=== PATIENT | female | born 1945 | race Caucasian/White ===

== ENCOUNTER 2024-04-16 17:29 | Inpatient (IN) ==
--- NOTE | 2024-04-16 18:06 | Emergency Department Note ---
Impression & Plan Acute calculous cholecystitis, Liver lesion ED Provider Note NAME: SARAH KOCH AGE: 79 SEX: F : 1945 ARRIVES VIA: Walk-In INFORMANT: Patient, ED PROVIDER(S): Jose Juan Cevallos DO CHIEF COMPLAINT: Abdominal pain HPI: The patient is an 79-year-old female who presented to the emergency department for an evaluation of abdominal pain. The patient had symptoms for approximately 4 weeks. She has noticed low-grade fever as well as fatigue. She was seen by her family doctor and had multiple tests including ultrasound of the abdomen laboratory studies as well as an MRI of the abdomen. She had the MRI of the abdomen today. She was called by her family doctor today and told to go directly to the emergency department for further evaluation. She has had no dark or tarry stools. She denies having any vomiting. She denies having any chest pain or difficulty breathing. The patient still has her gallbladder. ROS: See above HPI for pertinent positives & negatives. A total of 10 systems reviewed and were otherwise negative. PAST MEDICAL HISTORY: See Below PAST SURGICAL HISTORY: See Below FAMILY HISTORY: See Below SOCIAL HISTORY: See Below HOME MEDICATIONS: See Below ALLERGIES: See Below VITALS: See Below PHYSICAL EXAMINATION: GENERAL: Patient is awake alert in no acute distress patient is resting comfortably and showing no signs of anxiety EYES: The conjunctivae are clear. The pupils are round and reactive. EARS, NOSE, MOUTH AND THROAT: The nose is without any evidence of any deformity. Mucous membranes are moist. Tongue is midline. NECK: The neck is nontender and supple. RESPIRATORY: Normal respiratory effort is noted there is no evidence of wheezing rhonchi or rales CARDIOVASCULAR: Regular rate and rhythm noted there no murmurs rubs or gallops normal S1 normal S2. GASTROINTESTINAL: The abdomen is nondistended. There is right upper quadrant tenderness to palpation which was moderate. MUSCULOSKELETAL/EXTREMITIES: There is no evidence of gross deformity full range of motion is noted in the hips and shoulders. SKIN: There is no obvious evidence of any rash. There are no petechiae, pallor or cyanosis noted. NEUROLOGIC: Patient is awake alert and oriented x 3. MEDICAL DECISION MAKING: The patient is an 79-year-old female who presented to the emergency department for an evaluation of abdominal pain and generalized weakness. The patient's had symptoms over several weeks. She did have an outpatient workup. To be consistent with cholecystitis but is complicated by lesions on her liver that could be consistent with metastatic process. I discussed the patient's laboratory and radiographic studies with her. I was able to get her radiographic studies and notes from the [facility] system. I discussed her condition with the relish blender the medicine team as well as surgery. Likely the patient will require a multidisciplinary approach to treat this cholecystitis as well as workup for these lesions noted on the liver and determine if the primary is intra-abdominal or in another part of her body. The patient was treated with IV antibiotics. Triage Nursing notes reviewed. Patient's medical records from the [facility] system including an MRI of the abdomen ultrasound the abdomen and laboratory studies were reviewed. Vital Signs: reviewed and remarkable for no significant abnormalities Differential diagnosis: Etiologies such as appendicitis, diverticulitis, obstruction, inflammatory bowel disease, renal colic, PUD, biliary pathology, pancreatitis, mesenteric ischemia, aortic pathology, infections, genitourinary, UTI, perforated viscus, as well as others were entertained. ER treatment provided: See below Diagnostics interpreted by me: ECG: EKG was obtained in the emergency department. My interpretation is sinus rhythm at 95 bpm. There is no ectopy. There is no acute ST segment abnormalities noted. This was compared to a tracing from January 26, 2024. No changes were noted. Cardiac Monitoring: An order was placed for continuous cardiac monitoring. The monitor shows a rate of 84 bpm with sinus rhythm. Laboratory studies: As stated above and show below. Imaging studies: See below. Consultation(s): I discussed this case with Dr. Smallwood who is on for gastroenterology. I discussed this case with Dr. Moncada who is on-call for the [facility] hospitalist group. Past Med/Surg History Problem List Liver lesion (Acute) Acute calculous cholecystitis (Acute) History of surgery on left wrist Medical History (Updated 04/16/24 @ 20:22 by Jose Juan Cevallos DO) Celiac disease Follows gluten free Trigeminal neuralgia History of COVID-19 01/11/24 (home test)- took paxlovid, symptoms all resolved Fracture of distal end of left radius Osteoporosis Osteoarthritis HTN (hypertension) Surgical History History of liver biopsy benign History of esophagogastroduodenoscopy (EGD) History of benign breast biopsy History of colonoscopy History of wisdom tooth extraction History of parathyroidectomy 2014 History of surgery 2006 (for trigeminal neuralgia) Family History Other No family history of adverse response to anesthesia Social History Smoking Status: Never smoker Tobacco Type: Cigarettes Second Hand Exposure: No; Do You Dip or Chew Tobacco: No; Hx Alcohol Use: Yes Alcohol type: wine Hx Substance Use: No Preferred Language: Amharic Communication Ability: Effective 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 Beliefs That Will Affect Care: None marital status: / Current Living Situation: Spouse current occupational status: retired Feels Safe at Home: Yes Assistive Devices: Glasses Allergies Allergies Allergy/AdvReac Type Severity Reaction Status Date / Time gluten Allergy Severe celiac's Verified 04/16/24 18:00 disease wheat Allergy Severe celiac's Verified 04/16/24 18:00 disease carbamazepine [From Tegretol] Allergy Intermediate rash all Verified 04/16/24 18:00 over body oxcarbazepine Allergy Intermediate rash all Verified 04/16/24 18:00 [From Trileptal] over body Home Meds Home Medications Medication Instructions Recorded Confirmed cholecalciferol (vitamin D3) 25 25 mcg PO QAM 01/28/24 04/16/24 mcg (1,000 unit) capsule (Vitamin D3) cyanocobalamin (vitamin B-12) 1,000 mcg PO QAM 01/28/24 04/16/24 1,000 mcg tablet (Vitamin B-12) vitamin B complex 1 tab PO QAM 01/28/24 04/16/24 Previous Rx's Medication Instructions Recorded ondansetron 4 mg disintegrating 4 mg PO Q6H PRN nausea and 01/31/24 tablet vomiting #10 tabs Results & Data (ED) Vital Signs Vital Signs - 24 hr 04/16/24 17:33 04/16/24 17:53 04/16/24 18:04 Temperature 36.7 C Temperature Source Oral Pulse Rate 99 H Pulse Rate [Finger] 102 H Pulse Rhythm Regular Pulse Strength Normal Pulse Strength [Finger] Normal Respiratory Rate 20 18 18 Respiratory Effort / Characteristics Non-Labored Spontaneous Non-Labored Spontaneous Respiratory Depth Normal Normal Respiratory Pattern Regular Regular Blood Pressure 139/83 Blood Pressure [Left Arm] 115/72 Blood Pressure Mean 101 Blood Pressure Mean [Left Arm] 86 Blood Pressure Position [Left Arm] Sitting Pulse Oximetry 94 96 96 Oxygen Delivery Method Room Air Room Air Room Air Sepsis Recent Fever Within 48 Hours No Sepsis New/Unexplained Change in Mental Status No Sepsis Action Taken by Nursing No Action Required 04/16/24 18:28 Temperature Temperature Source Pulse Rate 91 H Pulse Rate [Finger] Pulse Rhythm Pulse Strength Pulse Strength [Finger] Respiratory Rate Respiratory Effort / Characteristics Respiratory Depth Respiratory Pattern Blood Pressure Blood Pressure [Left Arm] Blood Pressure Mean Blood Pressure Mean [Left Arm] Blood Pressure Position [Left Arm] Pulse Oximetry Oxygen Delivery Method Sepsis Recent Fever Within 48 Hours Sepsis New/Unexplained Change in Mental Status Sepsis Action Taken by Care Home Medications Current Medication List: was personally reviewed by me Laboratory Data Attestation: I reviewed the patient's lab results. 04/16/24 17:48 04/16/24 17:48 Lab Results 04/16/24 Range/Units 17:48 WBC 10.11 (4.8-10.8) K/ul RBC 3.57 L (4.20-5.40) M/uL Hgb 9.7 L (12.0-16.0) g/dl Hct 30.6 L (37.0-47.0) % MCV 85.7 (80.0-100.0) fL MCH 27.2 (25.0-34.0) pg MCHC 31.7 L (32.0-36.0) g/dL RDW Std Deviation 43.8 (36.4-46.3) fL RDW Coeff of Christianne 14.0 (11.5-14.5) % Plt Count 582 H (130-400) K/uL MPV 8.5 L (9.4-12.4) fL Immature Gran % (Auto) 0.5 % Neut % (Auto) 77.9 % Lymph % (Auto) 12.6 % Jasper % (Auto) 7.7 % Eos % (Auto) 0.8 % Baso % (Auto) 0.5 % Neut # (Auto) 7.88 H (1.40-6.50) K/uL Lymph # (Auto) 1.27 (1.20-3.40) K/uL Jasper # (Auto) 0.78 H (0.11-0.59) K/uL Eos # (Auto) 0.08 (0.00-0.50) K/uL Baso # (Auto) 0.05 (0.00-0.20) K/uL Immature Gran # (Auto) 0.05 (0.01-0.20) K/uL Sodium 134 L (136-145) mmol/L Potassium 3.8 (3.5-5.1) mmol/L Chloride 100 (98-107) mmol/L Carbon Dioxide 25 (21-32) mmol/L Anion Gap 9 (3-11) BUN 8 (6-23) mg/dl Creatinine 0.63 (0.6-1.2) mg/dl Est Cr Clr Drug Dosing 79.9 ml/min eGFR 89.07 BUN/Creatinine Ratio 12.7 (10-20) Glucose 153 H (70-99(Fasting)) mg/dl Calcium 9.2 (8.6-10.3) mg/dl Total Bilirubin 0.5 (0.2-1.0) mg/dl AST 54 H (13-39) U/L ALT 66 H (7-52) U/L Alkaline Phosphatase 139 H (34-104) U/L Troponin I High Sens 6.1 (0-14) pg/ml Total Protein 7.4 (6.0-8.3) gm/dl Albumin 3.4 (3.4-5.0) gm/dl Globulin 4.0 (2.5-4.0) gm/dl Albumin/Globulin Ratio 0.9 (0.9-2) Lipase 30 (11-82) U/L Administered Medications Discontinued Medications Cefoxitin Sodium (Mefoxin) 2,000 mg in 60 mls @ 100 mls/hr IV NOW STA Stop: 04/16/24 18:30 Last Infusion: 04/16/24 19:35 Dose: Infused Documented By: Admin: 04/16/24 18:59 Dose: 100 mls/hr Documented By: JODI Discharge Plan Visit Data Chief Complaint: Referred by Doctor Stated Complaint: GALLBLADDER WILL BURST ED Provider: Jose Juan Cevallos Discharge Problem: Acute calculous cholecystitis, Liver lesion Patient Disposition: Admitted As Inpatient Discharge Instructions Interventions: ED Discharge Assessment Last Done: 04/16/24 20:12
[2024-04-16 18:13] LABS: Basophils # (auto) 0.05 K/uL (0.00-0.20); Basophils % (auto) 0.5 %; Eosinophils # (auto) 0.08 K/uL (0.00-0.50); Eosinophils % (auto) 0.8 %; Hematocrit (blood only) 30.6 % (37.0-47.0); Hemoglobin 9.7 g/dl (12.0-16.0); Immature Granulocytes # (auto) 0.05 K/uL (0.01-0.20); Immature Granulocytes % (auto) 0.5 %; Lymphocytes # (auto) 1.27 K/uL (1.20-3.40); Lymphocytes % (auto) 12.6 %; Mean Corpuscular Hemoglobin 27.2 pg (25.0-34.0); Mean Corpuscular Hgb Conc 31.7 g/dL (32.0-36.0); Mean Corpuscular Volume 85.7 fL (80.0-100.0); Mean Platelet Volume 8.5 fL (9.4-12.4); Monocytes # (auto) 0.78 K/uL (0.11-0.59); Monocytes % (auto) 7.7 %; Neutrophils # (auto) 7.88 K/uL (1.40-6.50); Neutrophils % (auto) 77.9 %; Platelet Count 582 K/uL (130-400); RDW Standard Deviation 43.8 fL (36.4-46.3); Red Blood Count 3.57 M/uL (4.20-5.40); White Blood Count 10.11 K/ul (4.8-10.8)
--- NOTE | 2024-04-16 18:17 | History & Physical Report ---
Date of Service April 16, 2024 Assessment & Plan (1) Acute calculous cholecystitis: (2) Liver lesion: Plan: 79-year-old female with history of hypertension, dyslipidemia, hyperparathyroidism status post parathyroidectomy, celiac disease, presenting with abnormal MRI of the abdomen. Acute calculus cholecystitis Bilirubin normal Mild elevation of AST, ALT, alk phos Blood cultures ordered IV Zosyn N.p.o., IV fluids General Surgery consulted Multiple liver lesions, suspicious for metastasis GI consulted Anemia Anemia panel ordered History of hypertension Blood pressure at goal Recently has been taken off metoprolol Other chronic medical conditions: Dyslipidemia Hyperparathyroidism, status post surgery Celiac disease DVT prophylaxis SCDs for now in light of possible surgery CODE STATUS DNR as per patient Disposition Anticipate discharge to home when medically stable History of Present Illness Chief Complaint: Sent in by primary care physician for abnormal MRI of the abdomen showing acute calculus cholecystitis and multiple liver lesions Primary Care Provider: Vicenta Westbrook MD 79-year-old female with history of hypertension, dyslipidemia, hyperparathyro idism status post parathyroidectomy, celiac disease, presenting with abnormal MRI of the abdomen. Patient report at least 1 month history of abdominal bloating, generalized weakness, and intermittent fever/chills. She was seen by her PCP 2 days ago, found to have elevated LFTs and anemia, and was sent for an MRI of the abdomen and pelvis. She was called in today as the MRI acute calculus cholecystitis, and multiple liver lesions. At the ER, patient received with stable vital signs, afebrile. LFTs showing mild elevation of AST/ALT/alk phos, but normal bilirubin. She was given IV cefoxitin. On exam, patient seen resting in bed, comfortable, in good spirits, very pleasant. Reports appetite is fair, has some weight loss, but no melena or hematochezia. Allergies Allergy/AdvReac Type Severity Reaction Status Date / Time gluten Allergy Severe celiac's Verified 04/16/24 18:00 disease wheat Allergy Severe celiac's Verified 04/16/24 18:00 disease carbamazepine [From Tegretol] Allergy Intermediate rash all Verified 04/16/24 18:00 over body oxcarbazepine Allergy Intermediate rash all Verified 04/16/24 18:00 [From Trileptal] over body Home Medications Medication Instructions Recorded Confirmed Type cholecalciferol (vitamin D3) 25 25 mcg PO QAM 01/28/24 04/16/24 History mcg (1,000 unit) capsule (Vitamin D3) cyanocobalamin (vitamin B-12) 1,000 mcg PO QAM 01/28/24 04/16/24 History 1,000 mcg tablet (Vitamin B-12) metoprolol succinate 25 mg 25 mg PO QPM 01/28/24 04/16/24 History tablet,extended release 24 hr vitamin B complex 1 tab PO QAM 01/28/24 04/16/24 History ondansetron 4 mg disintegrating 4 mg PO Q6H PRN nausea and 01/31/24 04/16/24 Rx tablet vomiting #10 tabs Past Med/Surg History Problem List Liver lesion Acute calculous cholecystitis History of surgery on left wrist Medical History (Updated 04/16/24 @ 19:37 by Sin Moncada MD) Celiac disease Follows gluten free Trigeminal neuralgia History of COVID-19 01/11/24 (home test)- took paxlovid, symptoms all resolved Fracture of distal end of left radius Osteoporosis Osteoarthritis HTN (hypertension) Surgical History History of liver biopsy benign History of esophagogastroduodenoscopy (EGD) History of benign breast biopsy History of colonoscopy History of wisdom tooth extraction History of parathyroidectomy 2013 History of surgery 2006 (for trigeminal neuralgia) Family History Other No family history of adverse response to anesthesia Social History Smoking Status: Never smoker Tobacco Type: Cigarettes Second Hand Exposure: No; Do You Dip or Chew Tobacco: No; Hx Alcohol Use: Yes Alcohol type: wine Hx Substance Use: No Preferred Language: Angolan Communication Ability: Effective 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 Beliefs That Will Affect Care: None marital status: / Current Living Situation: Spouse current occupational status: retired Feels Safe at Home: Yes Assistive Devices: Glasses Review of Systems Review of Systems: all noted and negative except for above Physical Exam Physical Exam: General- oriented x 3, not in distress, speaks in sentences with no effort or accessory muscle use Head- atraumatic Eyes- PERRL, EOMI, anicteric ENT- oropharynx clear Neck- supple, no JVD, no adenopathy, no thyromegaly; carotids +2/2, no bruits appreciated Lungs- clear to auscultation bilaterally, no rales/wheezes Heart- normal rate, regular rhythm; no murmur, no gallop, no rub appreciated Abdomen- normal bowel sounds, nondistended, soft, Positive Turner sign, no masses or hepatosplenomegaly Extremities- no pretibial edema, no calf tenderness; peripheral pulses intact Neuro- alert, oriented x 3; CN 2-12 grossly intact; motor 5/5 bilaterally;sensation 100% on all extremities; no other gross focal neurologic deficits Skin- warm & dry Results & Data Results & Data Vital Signs (Past 12 Hours) Vital Signs Temp Pulse Pulse Resp BP BP Pulse Ox 04/16/24 18:04 18 96 04/16/24 17:53 102 H 18 115/72 96 04/16/24 17:33 36.7 C 99 H 20 139/83 94 O2 Del Method 04/16/24 18:04 Room Air 04/16/24 17:53 Room Air 04/16/24 17:33 Room Air all noted and reviewed including below Diagnostic Findings EXAM: MRI abdomen without and with contrast. HISTORY: abn US with multiple lever lesions. COMPARISON: None. Correlated to ultrasound from 04/14/2024. TECHNIQUE: Multiplanar multisequence MRI of the abdomen without and with contrast was performed. The arterial post-contrast phase is degraded by respiratory motion limiting assessment. FINDINGS: LIVER: There are several hypovascular liver lesions in the right hepatic lobe. Most of the lesions are solid with a hypovascular rim of enhancement such as on image 27 of series 11 and measuring 12 mm on image 73 of series 3. Few cystic lesions are present in the right hepatic lobe such as measuring 1.6 cm inferior right hepatic lobe on image 86 of series 23. A 9 mm simple cyst is present in the left hepatic lobe. An 8 millimeter mildly complex cyst is present in the inferior right hepatic lobe on image 30 of series 7. Heterogenous high T2 signal is present throughout the liver with heterogenous enhancement. GALLBLADDER/BILE DUCTS: Distended gallbladder measuring at least 13 cm in craniocaudal dimension. Multiple gallstones are present with mild pericholecystic fluid. There is mass effect on the common hepatic duct by the distended gallbladder with mild intrahepatic biliary ductal dilatation. No def inite choledocholithiasis. There is focal thickening of the gallbladder wall at the level of the fundus measuring 8 mm with mild smooth enhancement. PANCREAS : Multiple subcentimeter adjacent cystic lesions are present abutting the head and uncinate process of the pancreas on image 29 of series 7 which are poorly assessed on the current examination. There is no abnormal dilatation of the main pancreatic duct. Pancreas divisum is suspected. GI TRACT: No small bowel obstruction. SPLEEN: Unremarkable. LYMPH NODES: Enlarged portacaval lymph node is present measuring 14 mm in short axis on image 53 of series 10 with mild effect on the common bile duct. ADRENAL GLANDS: Unremarkable right adrenal gland. Mild nodularity left adrenal gland which is too small to characterize. KIDNEYS: Unremarkable. VASCULATURE: No aortic aneurysm. MUSCULOSKELETAL: No osseous destruction. MISCELLANEOUS: No free fluid. IMPRESSION: 1. Distended gallbladder with gallstones and pericholecystic fluid representing acute calculus cholecystitis. An emergent surgical consultation is recommended. 2. Mass effect on the common bile duct but distended gallbladder with intrahepatic biliary ductal dilatation. Heterogenous signal and enhancement in the liver which could be related to cholangitis or changes reactive to gallbladder inflammation. 3. Mild thickening of the gallbladder wall at the level of the fundus could be reactive to inflammatory changes. Note that neoplasm is less likely but not excluded. 4. Multiple hypovascular liver lesions most likely representing metastasis. Abnormal portacaval lymph node most likely metastasis. Further evaluation is recommended with a PET scan. 5. Few cystic lesions right hepatic lobe, indeterminate and probably metastasis. 6. Multiple subcentimeter cystic lesions abutting the head and uncinate process of the pancreas poorly assessed on the current examination and could represent small side branch type intraductal mucinous papillary neoplasm. 7. Enlarged portacaval lymph node. 8. Additional findings and details as above. (In compliance with Act 112, the NAIL ARTIST (Breaster) was contacted to invoke system generated communication of the patient's results.)
[2024-04-16 18:21] LABS: Albumin Globulin Ratio 0.9 (0.9-2); Albumin Level 3.4 gm/dl (3.4-5.0); BUN Creatinine Ratio 12.7 (10-20); Bilirubin,Total 0.5 mg/dl (0.2-1.0); Calcium 9.2 mg/dl (8.6-10.3); Creatinine Clr Calc Pharmacy 79.9 ml/min; Potassium 3.8 mmol/L (3.5-5.1); Total Protein 7.4 gm/dl (6.0-8.3)
[2024-04-16 18:27] LABS: Troponin I High Sensitivity 6.1 pg/ml (0-14)
[2024-04-16] MEDS: cefOXitin 2,000 MG/60 ML BAG IV STA (18:59)
[2024-04-16 19:31] LABS: Appearance Urine Clear (Clear); Bacteria Urine Automated None Seen (None Seen); Bilirubin Urine Negative (Negative); Blood Urine Negative (Negative); Cast Urine Automated 0-2 /lpf (0-2); Color Urine Yellow; Epithelial Cell Urine Auto 0-2 /hpf (0-2); Glucose Urine UA Negative (Negative); Ketones Urine Negative (Negative); Leukocyte Esterase Urine Trace (Negative); Nitrite Urine Negative (Negative); Protein Urine Negative (Negative); RBC Urine Automated 0-2 /hpf (0-2); Specific Gravity Urine 1.005 (1.000-1.030); Urobilinogen Urine Negative (Negative); WBC Urine Automated 0-5 /hpf (0-5)
--- NOTE | 2024-04-16 20:04 | Surgery Consultation ---
<Statement entered by Suri Hoover DO - 04/17/24 09:45> This case was discussed with the surgical PA and ED physician Date of Consultation April 16, 2024 Assessment & Plan (1) Acute calculous cholecystitis: Patient was sent to the ED this evening by her PCP due to outpatient imaging and labs revealing acute calculus cholecystitis, multiple liver lesions concerning for metastasis, and elevated LFTs. She was seen and evaluated this evening, she is resting comfortably in bed, stable vital signs, and is in no acute distress. The patient continues with upper quadrant abdominal pain that has been present for the last few weeks. She otherwise denies any associated N/V. On exam her abdomen is soft and nondistended but does have TTP in the RUQ with +Turner sign. From a surgical standpoint recommend the following: -Keep patient npo for now, initiate IV fluids, and IV antibiotic coverage with Zosyn -Given multiple liver lesions, recommend GI consult to further evaluate. Patient may also need IR biopsy done as well. -Will f/u am LFTs and WBC -Continue medical management per primary team, surgery will continue to follow (2) Liver lesion: History of Present Illness Reason for Consultation: Acute calculus cholecystitis History of Present Illness Patient is an 79-year-old female who presented to the emergency department by her PCP for concerns of acute calculus cholecystitis and multiple liver lesions found on outpatient MRI imaging. Patient states that over the last 3 to 4 weeks she has had abdominal bloating, generalized weakness and intermittent fevers and chills at times. Patient states that she has also had some right upper quadrant abdominal pain as well. Patient was seen by her PCP a few days ago and at that time blood work was obtained which revealed elevated LFTs and anemia. Patient was also sent for MRI imaging as an outpatient and results demonstrated acute calculus cholecystitis and multiple liver lesions, at that time she was prompted to come to the ED for further evaluation and admission. Patient was seen and examined this evening in the emergency department. Vitals stable and NAD. Patient states that she continues to have right upper quadrant pain however is tolerable at this time. She tells me that she does have a history of celiac disease for the past 40 years and does eat a relatively healthy diet. However she has noticed her abdomen feeling more bloated over the last month after eating and states she is also having increase gas/belching. Although having these symptoms the patient states she is still able to eat without any issue with any foods making it better or worse. She states the pain in her right upper quadrant is persistent and at times does radiate into her epigastric region. She denies any associated N/V or changes in her bowel habits. She denies any previous abdominal surgeries. Allergies Allergy/AdvReac Type Severity Reaction Status Date / Time gluten Allergy Severe celiac's Verified 04/16/24 18:00 disease wheat Allergy Severe celiac's Verified 04/16/24 18:00 disease carbamazepine [From Tegretol] Allergy Intermediate rash all Verified 04/16/24 18:00 over body oxcarbazepine Allergy Intermediate rash all Verified 04/16/24 18:00 [From Trileptal] over body Home Medications Medication Instructions Recorded Confirmed Type cholecalciferol (vitamin D3) 25 25 mcg PO QAM 01/28/24 04/16/24 History mcg (1,000 unit) capsule (Vitamin D3) cyanocobalamin (vitamin B-12) 1,000 mcg PO QAM 01/28/24 04/16/24 History 1,000 mcg tablet (Vitamin B-12) vitamin B complex 1 tab PO QAM 01/28/24 04/16/24 History ondansetron 4 mg disintegrating 4 mg PO Q6H PRN nausea and 01/31/24 04/16/24 Rx tablet vomiting #10 tabs Patient History Medical History (Updated 04/16/24 @ 20:22 by Jose Juan Cevallos DO) Celiac disease Follows gluten free Trigeminal neuralgia History of COVID-19 01/11/24 (home test)- took paxlovid, symptoms all resolved Fracture of distal end of left radius Osteoporosis Osteoarthritis HTN (hypertension) Surgical History History of liver biopsy benign History of esophagogastroduodenoscopy (EGD) History of benign breast biopsy History of colonoscopy History of wisdom tooth extraction History of parathyroidectomy 2013 History of surgery 2006 (for trigeminal neuralgia) Family History Other No family history of adverse response to anesthesia Social History Smoking Status: Never smoker Tobacco Type: Cigarettes Second Hand Exposure: No; Do You Dip or Chew Tobacco: No; Hx Alcohol Use: Yes Alcohol type: wine Hx Substance Use: No Preferred Language: Wolof Communication Ability: Effective Assistant Track Coach Required: No Beliefs That Will Affect Care: None marital status: / Current Living Situation: Spouse current occupational status: retired Feels Safe at Home: Yes Assistive Devices: Glasses Review of Systems Review of Systems: All systems reviewed & are unremarkable except as noted in HPI & below Physical Exam Constitutional: WD/WN, vitals as above Respiratory: normal respiratory effort, lungs clear to auscultation Cardiovascular: RRR, no murmur, no edema Gastrointestinal (Abdomen): Inspection/Auscultation: abdomen normal to inspection and normal bowel sounds; abdomen not distended Percus karen/Palpation: + abdomen tender (TTP in the RUQ with +Turner's sign) and abdomen soft; no guarding, abdomen not rigid and abdomen not firm Skin: no rashes, warm and dry Psychiatric: A+Ox3, euthymic affect Results & Data Vital Signs (Past 12 Hours) Vital Signs Temp Pulse Pulse Resp BP BP Pulse Ox 04/16/24 19:42 94 H 23 122/90 96 04/16/24 18:28 91 H 04/16/24 18:04 18 96 04/16/24 17:53 102 H 18 115/72 96 04/16/24 17:33 36.7 C 99 H 20 139/83 94 O2 Del Method 04/16/24 19:42 Room Air 04/16/24 18:28 04/16/24 18:04 Room Air 04/16/24 17:53 Room Air 04/16/24 17:33 Room Air Diagnostic Findings EXAM: MRI abdomen without and with contrast. HISTORY: abn US with multiple lever lesions. COMPARISON: None. Correlated to ultrasound from 04/14/2024. TECHNIQUE: Multiplanar multisequence MRI of the abdomen without and with contrast was performed. The arterial post-contrast phase is degraded by respiratory motion limiting assessment. FINDINGS: LIVER: There are several hypovascular liver lesions in the right hepatic lobe. Most of the lesions are solid with a hypovascular rim of enhancement such as on image 27 of series 11 and measuring 12 mm on image 73 of series 3. Few cystic lesions are present in the right hepatic lobe such as measuring 1.6 cm inferior right hepatic lobe on image 86 of series 23. A 9 mm simple cyst is present in the left hepatic lobe. An 8 millimeter mildly complex cyst is present in the inferior right hepatic lobe on image 30 of series 7. Heterogenous high T2 sign al is present throughout the liver with heterogenous enhancement. GALLBLADDER/BILE DUCTS: Distended gallbladder measuring at least 13 cm in craniocaudal dimension. Multiple gallstones are present with mild pericholecystic fluid. There is mass effect on the common hepatic duct by the distended gallbladder with mild intrahepatic biliary ductal dilatation. No definite choledocholithiasis. There is focal thickening of the gallbladder wall at the level of the fundus measuring 8 mm with mild smooth enhancement. PANCREAS : Multiple subcentimeter adjacent cystic lesions are present abutting the head and uncinate process of the pancreas on image 29 of series 7 which are poorly assessed on the current examination. There is no abnormal dilatation of the main pancreatic duct. Pancreas divisum is suspected. GI TRACT: No small bowel obstruction. SPLEEN: Unremarkable. LYMPH NODES: Enlarged portacaval lymph node is present measuring 14 mm in short axis on image 53 of series 10 with mild effect on the common bile duct. ADRENAL GLANDS: Unremarkable right adrenal gland. Mild nodularity left adrenal gland which is too small to characterize. KIDNEYS: Unremarkable. VASCULATURE: No aortic aneurysm. MUSCULOSKELETAL: No osseous destruction. MISCELLANEOUS: No free fluid. IMPRESSION: 1. Distended gallbladder with gallstones and pericholecystic fluid representing acute calculus cholecystitis. An emergent surgical consultation is recommended. 2. Mass effect on the common bile duct but distended gallbladder with intrahepatic biliary ductal dilatation. Heterogenous signal and enhancement in the liver which could be related to cholangitis or changes reactive to gallbladder inflammation. 3. Mild thickening of the gallbladder wall at the level of the fundus could be reactive to inflammatory changes. Note that neoplasm is less likely but not excluded. 4. Multiple hypovascular liver lesions most likely representing metastasis. Abnormal portacaval lymph node most likely metastasis. Further evaluation is recommended with a PET scan. 5. Few cystic lesions right hepatic lobe, indeterminate and probably metastasis. 6. Multiple subcentimeter cystic lesions abutting the head and uncinate process of the pancreas poorly assessed on the current examination and could represent small side branch type intraductal mucinous papillary neoplasm. 7. Enlarged portacaval lymph node. 8. Additional findings and details as above. (In compliance with Act 112, the [employer] (Middleware Consultant) was contacted to invoke system generated communication of the patient's resu lts.) PG Care Time/CCT Total # of Minutes Spent Total Time Spent with Patient: Total time spent is greater than 50% in coordination of care (as documented) at patient's floor/unit and/or counseling patient: Coding Level of Care Code 53749 INT INP/OBS CARE MIN Diagnoses Acute calculous cholecystitis K80.00 Liver lesion K76.9
[2024-04-16] MEDS ORDERED: ACETAMINOPHEN 1,000 MG/100 ML VIAL IV PRN (20:42)
[2024-04-16] MEDS ORDERED: PROMETHAZINE 12.5 MG/50.5 ML BAG IV PRN (20:42)
[2024-04-16] MEDS: PIPERACILLIN/TAZOBACTAM 4.5 GM/100 ML BAG IV ONE (22:46)
[2024-04-16] MEDS: ADVANCED PROBIOTIC 625 MG CAPSULE PO SCH (22:47)
[2024-04-16] MEDS: D5NSS + 20MEQ KCL 20 MEQ/1,000 ML BAG IV SCH (22:50)
--- OUTSIDE RECORDS SUMMARY | 2024-04-16 23:59 | External Medical Summary ---
Author Name Unknown Address Unknown Organization K09:[facility] [id number] Laboratory Report Ordering Provider Test Date Status SISSY MCCOLLUM 04/15/2024 08:07:53 Final Observation Date Value Abnormality Reference (Units ) Status Occult Blood (EIA) 04/15/2024 08:07:53 Negative N egative Final Performing Location [facility] [id number]
--- OUTSIDE RECORDS SUMMARY | 2024-04-16 23:59 | External Medical Summary | Summary of Care ---
Author Name Unknown Organization [facility] Address [address] [place] [address] Phone [phone] Care Team Providers Care Prenatal Nurse Name Role Phone Suzy Sadia Garza DO Primary Care Provider Reason for Visit * Reason Comments Outpatient Testing Encounter Details Date Type Department Care Team (Late st Contact Info) Description 04/14/2024 12:10 PM EDT Laboratory Laboratory, [facility] [address] [place] [id number] [facility] [address] [place] [address] Anemia, unspecified type; Abnormal LFTs; Celiac disease Allergies Active Allergy Reactions Criticality Noted Date Comments Amoxicillin Rash 12/03/2014 Penicillins Rash 12/03/2014 Carbamazepine Rash 12/03/2014 documented as of this encounter (statuses as of 04/14/2024) Medications Medication Sig Dispensed Refills Start Date End Date Status Multiple Vitamin (MULTIVITAMINS) Capsule Take 1 Capsule by mouth in the morning. Active Vitamin D, Cholecalciferol, 1000 units CAPS Take by mouth. Active B-12 1000 MCG Oral Tablet Take by mouth. Active Metoprolol Succinate ER 25 MG Oral Tablet Extended Release 24 Hour (toPROL XL)Indications:HTN, goal below 140/90 Take 1 Tablet by mouth in the morning. 90 Tablet 3 03/09/2024 Active Hospital, Clinic, or Other Facility Administered Medication Ordered Dose Route Frequency Start Date End Date Status Denosumab (Prolia) subcut inj 60 mgIndications:Senile osteoporosis 60 mg SC [id number] 08/29/2023 08/23/2024 Active documented as of this encounter (statuses as of 04/14/2024) Active Problems Problem Noted Date Diagnosed Date Fracture of left wrist with routine healing 01/17 History of open reduction an d internal fixation (ORIF) procedure 02/14/2024 Age-related osteoporosis with current pathologic al fracture 02/14/2024 Hyperlipidemia 08/16/2023 [place] of toe 08/01/2022 Primary osteoarthritis of fi rst carpometacarpal joint of left hand 08/01/2022 HTN, goal below 140/90 01/26/2022 Postprocedural hypoparathyroidism 08/08/2019 Celiac disease 07/25/2019 H/O parathyroidectomy Age-related osteoporosis wit hout current pathological fracture documented as of this encounter (statuses as of 04/14/2024) Resolved Problems Problem Noted Date Diagnosed Date Resolved Date Trigeminal neuralgia 05/06/2018 020 Colon polyp 12/03/2014 09/04/2019 Callous ulcer 12/03/2014 05/06/2018 Hammertoe 12/03/2014 09/04/2019 Bunion of left foot 12/03/2014 12/12/19 19 documented as of this encounter (statuses as of 04/14/2024) Immunizations Name Administration Dates Next Due COVID-19 mRNA, LNP-s, No Pre serve, 2-Dose Series (Moderna) 04/22/2021,08/15/2020,07/12/2020 COVID-19, mRNA, LNP-s, PF, B ooster, 100mcg/0.5mg (Moderna) 10/04/2021 Covid-19, Mrna, Lnp-s, Pf, B ivalent, 30 Mcg, IM, 12 yrs and above (Pfizer) 03/07/2022 Pneumococcal Conjugate Vacc, 13 Valent (Prevnar) 05/27/2015 Pneumococcal Polysaccharide PPV23 (Pneumovax) 10/26/2016 RSV Vac., Bivalent, Perfusio n F, Pf,0.5 Ml (Abrysvo) 2023 Seasonal Influenza Vac., MDV , IM, 0.5 mL (Fluzone) 04/04/2014 Seasonal Influenza, PF, 6 M & above, IM , (FluLaval or Fluzone) 03/22/2020,03/20/2018,03/14/2017 Seasonal Influenza, Quadriva lent Hd (Fluzone Hd) 04/17/2023,04/03/2022,03/18/2021 Seasonal Influenza, Quadriva lent, No Preserve, IM 03/20/2016,03/31/2015 Seasonal Influenza, Trivalen t, Adjuvanted, 65+ YRS, PF, (Fluad) 03/20/2021,02/27/2019 TDAP (age 10 and older)(Boostrix) 07/05/2013 TDAP, Age 7 and older, IM (Adacel) 02/14/2024 Zoster Vaccine Recombinant (Shingrix) 02/02/2020 ,12/03/2019 documented as of this encounter Social History Tobacco Use Types Packs/Day Years Used Date Smoking Tobacco: Former Cigarettes 0.5 2 0 06/18/1965 - 06/18/1967 Smokeless Tobacco: Never Alcohol Use Standard Drinks/Week Comments Yes 7 (1 standard drink = 0.6 oz pur e alcohol) 1 glass of wine daily PHQ-2 Answer Date Recorded PHQ Adult Total Score 0 08/01/2022 Hunger Vital Sign Answer Date Recorded Within the past 12 months, y ou worried that your food would run out before you got the money to buy more. Never true 10/26/19 24 Within the past 12 months, t he food you bought just didn't last and you didn't have money to get more. Never true 10/26/2023 Childcare Answer Date Recorded Do you feel overwhelmed with taking care of a child, family member or friend? No 10/26/2023 Does your family need help f inding childcare? (Household - for ages 0-17 years) Not on file 10/26/2023 Clothing Answer Date Recorded Have you been unable to get clothing when it was really needed? No 10/26/2023 Is your family able to get c lothes or diapers when needed? (Household - for ages 0-17 years) Not on file 10/26/2023 Personal Safety Answer Date Recorded Do you feel unsafe or have concerns for your saf ety? No 10/26/2023 Do you have concerns for you r family's safety? (Household - for ages 0-17 years) Not on file 10/26/2023 Utilities Answer Date Recorded Do you have trouble paying y our heating, water, or electric bill? No 10/26/2023 Is your family able to pay t he heat, water, or electric bill? (Household - for ages 0-17 years) Not on file 10/26/2023 Does your family have access to good internet? (Household - for ages 0-17 years) Not on file 10/26/2023 Employment Status Answer Date Recorded Are you unemployed or without regular income? No 10/26/2023 Does the household have a [facility] source of income? (Household - for ages 0-17 years) Not on file 10/26/2023 Social Connections Answer Date Recorded How often do you feel lonely or isolated from th ose around you? Never 10/26/2023 Financial Resource Strain Answer Date R ecorded Do you have any trouble payi ng for your medications, or do you think you might in the future? No 10/26/2023 Does your family have troubl e paying for medicine? (Household - for ages 0-17 years) Not on file 10/26/2023 Transportation Needs Answer Date Record ed READ ONLY Do you have troubl e getting a ride to medical visits or work? Never True 10/26/2023 Does your family have a hard time getting a ride to doctors visits? (Household - for ages 0-17 years) Not on file 10/26/2023 Has lack of transportation k ept you from medical appointments, meetings, work, or from getting things needed for daily living? Check all that apply. (Adult - for ages 18 years and over) Not on file 10/26/2023 Do you (or your family) have trouble finding or paying for a ride (transportation)? (Household - for ages 0-17 years) Not on file 10/26/2023 Housing Stability Answer Date Recorded Do you currently live in a s helter or have no steady place to sleep at night? No 10/26/2023 READ ONLY Do you think you a re at risk of becoming homeless? No 10/26/2023 Does your family worry about paying for your home or becoming homeless? (Household - for ages 0-17 years) Not on file 0 10/26/2023 Are you homeless or worried that you might be in the future? (Adult - for ages 18 years and over) Not on file Are you (or your family) raven eless or worried that you might be in the future? (Household - for ages 0-17 years) Not on file Food Insecurity Answer Date Recorded Do you need food for this week? No 10/26/2023 Are you able to get enough f ood for your family? (Household - for ages 0-17 years) Not on file 10/26/2023 Does your family need food t his week? (Household - for ages 0-17 years) Not on file 10/26/2023 Do you always have enough fo od for your family? (Household - for ages 0-17 years) Not on file 10/26/2023 Sex and Gender Information Value Date Recorded Sex Assigned at Female 08/01/2022 8:23 AM EST Gender Identity Female 08/01/2022 8:23 AM EST Sexual Orientation Straight 08/01/2022 8: 23 AM EST Job Start Date Occupation Industry Not on file Not on file Not on file documented as of this encounter Plan of Treatment Upcoming Encounters Date Type Department Care Team (Late st Contact Info) Description 04/15/2024 8:20 AM EDT Office Visit General Internal Medicine [facility] [address] [place] [address] Vicenta Westbrook MD 200 [facility] [place] [address] 04/17/2024 9:40 AM EDT Office Visit Podiatry [facility] [address] [place] [address] Danielle Haley DPM [address] [place] [address] 08/21/2024 7:40 AM EST Office Visit Family Practice [facility] [address] [place] [address] Sadia Almonte, DO [address] [place] [address] 09/09/2024 2:00 PM EDT Office Visit Rheumatology [facility] [address] [place] [address] Raul Mckeon CRNP [address] [place] [address] 11/05/2024 8:20 AM EDT Telemedicine Endocrinology [facility] [address] [place] [address] Monae Parekh MD [address] [place] [address] Pending Results Name Type Priority Associated Diagnoses Date /Time CBC WITH WBC DIFFERENTIAL AND ANEMIA REFLEX WORKUP Lab STAT Anemia, unspecified type Abnormal LFTs Celiac disease 04/14/2024 11:46 AM EDT HEPATIC FUNCTION PANEL Lab STAT Anemia, unspecified type Abnormal LFTs Celiac disease 04/14/2024 11:46 AM EDT ANEMIA REFLEX CHEMISTRY HOLD Lab STAT Anemia, unspecified type Abnormal LFTs Celiac disease 04/14/2024 11:46 AM EDT RETICULOCYTE PANEL Lab STAT Anemia, unspecified type Abnormal LFTs Celiac disease 04/14/2024 11:46 AM EDT Scheduled Procedures Name Priority Associated Diagnoses Date/Ti me COLONOSCOPY FLEXIBLE PROXIMAL DIAGNOSTIC Recall History of colon polyps Health Maintenance Due Date Last Done Comments Adult Wellness Visit 2009 Depression Screening 08/01/2023 08/01/2022 COVID-19 Vaccine ( season) 2024 03/07/2022, 10/04/2021, 04/22/2021, Additional history exists Influenza Vaccine (FLU shot) (#1) 2024 04/17/2023, 04/03/2022, 03/20/2021, Additional history exists GFR 04/11/2025 04/11/2024, 11/16, 02/12/2023, Additional history exists Albumin/Creatinine Ratio 08/03/2025 08/03/2022 DXA Scan 01/20/2026 01/21/2024, 08/0 10/2023, 01/11/2022, Additional history exists DTap/Tdap Vaccines (3 - Td or Tdap) 02/13/2034 02/14/2024, 07/05/2013 Pneumococcal Vaccine: 65+ Years Completed 10/26/2016, 05/27/2015 Zoster Vaccines Completed 02/02/2020, 11/16, 12/26/2016 RETIRED - COLONOSCOPY-EVERY 5 YRS AGES 18-100 Discontinued 03/19/2020, 03/19/2020, 03/09/2015, Additional history exists VITAMIN D LEVEL ONCE IN A LIFETIME-USE SMARTSET# [id number] Completed 04/11/2024, 11/29/2023, 08/22/2023, Additional history exists HPV (Gardasil) Vaccine Aged Out No lo nger eligible based on patient's age to complete this topic Hepatitis B Vaccine Aged Out No longe r eligible based on patient's age to complete this topic MENINGOCOCCAL (MENACTRA/MENVEO) Aged Out No longer eligible based on patient's age to complete this topic documented as of this encounter Medical Devices Not on filedocumented as of this encounter Procedures Procedure Name Priority Date/Time Associated Diagnosis Comments ANEMIA CBC STAT 04/14/2024 11:46 AM EDT Anemia, unspecified type Abnormal LFTs Celiac disease DIFFERENTIAL, AUTOMATED STAT 04/14/2024 11:46 AM EDT Anemia, unspecified type Abnormal LFTs Celiac disease documented in this encounter Results * (ABNORMAL) DIFFERENTIAL, AUTOMATED (04/14/2024 11:46 AM EDT) WBC 10.67 4.00 - 10.80 K/uL 04/14/2024 11:56 AM EDT [facility] Neutrophils % 75.7(H) 40.0 - 75.0 % 04/14/2024 11:56 AM EDT [facility] Lymphocytes % 15.3(L) 18.0 - 42.0 % 04/14/2024 11:56 AM EDT [facility] Monocytes % 7.8 1.0 - 11.0 % 04/14/2024 11:56 AM EDT [facility] Eosinophils % 0.7 0.0 - 6.0 % 04/14/2024 11:56 AM EDT [facility] [place] Basophils % 0.5 0.0 - 2.0 % 04/14/2024 11:56 AM EDT [facility] [place] Absolute Neutrophils 8.08(H) 1.80 - 7.70 K/uL 04/14/2024 11:56 AM EDT [facility] [place] Absolute Lymphocytes 1.63 1.00 - 4.80 K/ul 04/14/2024 11:56 AM EDT [facility] [place] Absolute Monocytes 0.83 0.00 - 1.10 K/uL 04/14/2024 11:56 AM EDT [facility] [place] Absolute Eosinophils 0.08 0.00 - 0.70 K/uL 04/14/2024 11:56 AM EDT [facility] [place] Absolute Basophils 0.05 0.00 - 0.20 K/uL 04/14/2024 11:56 AM EDT [facility] [place] Blood Venous blood specimen / Unknown Venipuncture / Unknown 04/14/2024 11:46 AM EDT 04/14/2024 11:46 AM EDT Vicenta Westbrook MD LAB BLOOD ORDERABLES Performing Organization Address City/State/[facility] Co de Phone Number [facility] [address] [place] [phone] * (ABNORMAL) ANEMIA CBC (04/14/2024 11:46 AM EDT) WBC 10.67 4.00 - 10.80 K/uL 04/14/2024 11:56 AM EDT [facility] [place] RBC 3.86 3.85 - 5.15 M/uL 04/14/2024 11:56 AM EDT [facility] [place] HGB 10.7(L) 12.0 - 15.3 g/dL 04/14/2024 11:56 AM EDT [facility] [place] Comment: Anemia reflex testing triggers on a HGB < 12.0 for Females and HGB < 13.0 for Males in accordance with the WHO Anemia Guidelines Anemia reflex testing triggers on a HGB < 12.0 for Females and HGB < 13.0 for Males in accordance with the WHO Anemia Guidelines HCT 34.3(L) 36.0 - 45.2 % 04/14/2024 11:56 AM EDT [facility] [place] MCV 88.9 81.5 - 97.5 fL 04/14/2024 11:56 AM EDT [facility] [place] MCH 27.7 27.0 - 34.0 pg 04/14/2024 11:56 AM EDT [facility] [place] MCHC 31.2 32.0 - 36.0 g/dL 04/14/2024 11:56 AM EDT [facility] [place] RDW 14.2 11.5 - 15.5 % 04/14/2024 11:56 AM EDT [facility] [place] PLT 586(H) 140 - 400 K/uL 04/14/2024 11:56 AM EDT [facility] [place] MPV 8.3 6.6 - 11.1 fL 04/14/2024 11:56 AM EDT [facility] [place] [facility] Blood Venous blood specimen / Unknown Venipuncture / Unknown 04/14/2024 11:46 AM EDT 04/14/2024 11:46 AM EDT Vicenta Westbrook MD LAB BLOOD ORDERABLES [facility] [place] [address] [place] [address] documented in this encounter Visit Diagnoses Diagnosis Anemia, unspecified type Abnormal LFTs Other abnormal blood chemistry Celiac disease documented in this encounter Care Teams Prenatal Nurse Relationship Specialty Start Date End Date Sadia Almonte DO [address] [place] [address] PCP - General Family Medicine 11/23/16 documented as of this encounter
--- OUTSIDE RECORDS SUMMARY | 2024-04-16 23:59 | External Medical Summary ---
Author Name Unknown Address Unknown Organization [id number] [address] [place] [address] Laboratory Report Ordering Provider Test Date Status SISSY MCCOLLUM 04/14/2024 11:46:00 Final Observation Date Value Abnormality Reference (Units ) Status SYNC LEUKOCYTES IN BLOOD BY AUTOMATED COUNT 04/14/2024 11:46:00 10.67 4.00-10.80 (K/uL) Final Segs 04/14/2024 11:46:00 75.7 Above high normal 40.0-75.0 (%) Final Lymphs % 04/14/2024 11:46:00 15.3 Below low normal 18.0-42.0 (%) Final Monos 04/14/2024 11:46:00 7.8 1.0-11.0 (%) Final Eosinophils 04/14/2024 11:46:00 0.7 0.0-6.0 (%) Final Basos 04/14/2024 11:46:00 0.5 0.0-2.0 (%) Final Absolute Segs 04/14/2024 11:46:00 8.08 Above high normal 1.80-7.70 (K/uL) Final Lymphs, absolute 04/14/2024 11:46:00 1.63 1.00-4.80 (K/ul) Final Monos, Abs 04/14/2024 11:46:00 0.83 0.00-1.10 (K/uL) Final Eos, Abs 04/14/2024 11:46:00 0.08 0.00-0.70 (K/uL) Final Basos, Abs 04/14/2024 11:46:00 0.05 0.00-0.20 (K/uL) Final Performing Location [facility] [address] - [address] [place] [address]
--- OUTSIDE RECORDS SUMMARY | 2024-04-16 23:59 | External Medical Summary | Summary of Care ---
Author Name Unknown Organization [facility] Address [address] [place] [address] Phone [phone] Care Team Providers Care Coding Coordinator Name Role Phone Sadia Almonte Primary Care Provider Reason for Visit * Reason Onset Date Comments Test Results 04/14/2024 Unexpected or In determinate Result Encounter Details Date Type Department Care Team (Late st Contact Info) Description 04/14/2024 Telephone General Internal Medicine [facility] [address] [place] [address] Vicenta Westbrook MD [address] [place] [address] Test Results (Unexpected or Indeterminate ... Allergies Active Allergy Reactions Criticality Noted Date [...] inj 60 mgIndications:Senile osteoporosis 60 mg SC [id number] 08/29/2023 08/23/2024 Active documented as of this encounter (statuses as of 04/14/2024) Active Problems Problem Noted Date Diagnosed Date Fracture of left wrist with routine healing 01/17 History of open reduction an d internal fixation (ORIF) procedure 02/14/2024 Age-related osteoporosis with current pathologic al fracture 02/14/2024 Hyperlipidemia 08/16/2023 [place] of toe 08/01/2022 Primary osteoarthritis of fi [...] No 10/26/2023 Does the household have a [facility] source of income? (Household - for ages [...] on file documented as of this encounter Miscellaneous Notes * Telephone Encounter - Toshia Dinh OSA - 04/14/2024 12:49 PM EDT Hello- The radiologist discovered an unexpected or indeterminate finding on Joanie Joyner ([id number]) and asks that you review the following report. Study Type: US ABDOMEN LIMITED Date of Study: 04/14/2024 IMPRESSION 1. Multiple liver lesions, raising suspicion for metastatic disease. MRI of the abdomen without andwith contrast is recommended for further evaluation. 2. Cholelithiasis without evidence of acute cholecystitis. Please respond to this encounter to acknowledge receipt of this message and take responsibility to ensure this report is reviewed. Thank you, MAXIM Mendenhall Client Service Rep [facility] documented in this encounter Plan of Treatment Upcoming Encounters Date Type Department Care Team (Late st Contact Info) Description 04/15/2024 8:20 AM EDT Office Visit General Internal Medicine [facility] [address] [place] [address] Vicenta Westbrook MD [address] [facility] [place] [address] 04/17/2024 9:40 AM EDT Office Visit Podiatry [facility] [address] [facility] [place] [address] Danielle Haley DPM [address] [facility] [place] [address] 08/21/2024 7:40 AM EST Office Visit Family Practice [facility] [address] [place] [address] Sadia Almonte DO [address] [facility] [place] [address] 09/09/2024 2:00 PM EDT Office Visit Rheumatology [facility] [address] [facility] [place] [address] Raul Mckeon CRNP [address] [facility] [place] [address] 11/05/2024 8:20 AM EDT Telemedicine Endocrinology [address] [place] [address] Monae Parekh MD [address] [facility] [place] [address] Scheduled Procedures Name Priority Associated Diagnoses Date/Ti [...] Ratio 08/03/2025 08/03/2022 DXA Scan 01/20/2026 01/21/2024, 0810/2023, 01/11/2022, Additional history exists DTap/Tdap Vaccines (3 - Td or Tdap) 02/13/2034 02/14/2024, 07/05/2013 Pneumococcal Vaccine: 65+ Years Completed 10/26/2016, 05/27/2015 Zoster Vaccines Completed 02/02/2020, 11/16, 12/26/2016 RETIRED - COLONOSCOPY-EVERY 5 YRS AGES 18-100 Discontinued 03/19/2020, 03/19/2020, 03/09/2015, Additional history exists VITAMIN D LEVEL ONCE IN A LIFETIME-USE SMARTSET# [id number] Completed 04/11/2024, 11/29/2023, 08/22/2023, Additional history exists [...] Not on filedocumented as of this encounter Care Teams Coding Coordinator Relationship Specialty Start Date End Date Sadia Almonte DO [address] [place] [address] PCP - General Family Medicine 11/23/16 documented as of this encounter
--- OUTSIDE RECORDS SUMMARY | 2024-04-16 23:59 | External Medical Summary | Summary of Care ---
Author Name Unknown Organization [facility] Address [address] [place] [address] Phone [phone] Care Team Providers Care Shuttle Final Inspector Name Role Phone Sadia Almonte Kayla Primary Care Provider Reason for Referral * Evaluate & Treat - Unlimited Visits (Within 10 days (routine)) - Authorized Specialty Diagnoses / Procedures Referred By Aidee farmer Referred To Contact Gastroenterology Diagnoses Abnormal LFTs Abnormal ultrasound of liver Calculus of gallbladder without cholecystitis without obstruction Abnormal CBC Celiac disease History of colonoscopy with polypectomy Vicenta Westbrook MD [address] [facility] [place] [address] Referral ID Status Reason Start Date Expiration Date Visits Requested Visits Authorized [id number] Authorized Specialty Services Required 4 [phone] Question Answer Referral Priority Within 10 days (routine) Where should this appointment be scheduled? [facility] For what condition is the patient being referred? All Gastro Conditions Reason for Visit * Reason Comments Follow Up Encounter Details Date Type Department Care Team (Latest Contact Info) Description 04/15/2024 8:20 AM EDT Office Visit General Internal Medicine [address] [place] [address] [place] [address] Vicenta Westbrook MD [address] [place] [address] Abnormal LFTs*; Abnormal ultrasound of liver; Calculus of gallbladder without cholecystitis without obstruction; Abnormal CBC; H/O parathyroidectomy; Closed fracture of left wrist with routine healing, subsequent encounter; Age-related osteoporosis with current pathological fracture with routine healing, subsequent encounter; HTN, goal below 140/90; Celiac disease; History of colonoscopy with polypectomy; Anemia, unspecified type Allergies Active Allergy Reactions Criticality Noted Date Comments Amoxicillin Rash 12/03/2014 Penicillins Rash 12/03/2014 Carbamazepine Rash 12/03/2014 documented as of this encounter (statuses as of 04/15/2024) Medications Medication Sig Dispensed Refills Start Date [...] inj 60 mgIndications:Senile osteoporosis 60 mg SC [id number] 08/29/2023 08/23/2024 Active documented as of this encounter (statuses as of 04/15/2024) Active Problems Problem Noted Date Diagnosed Date Fracture of left wrist with routine healing 01/17 History of open reduction an d internal fixation (ORIF) procedure 02/14/2024 Age-related osteoporosis with current pathologic al fracture 02/14/2024 Hyperlipidemia 08/16/2023 [place] of toe 08/01/2022 Primary osteoarthritis of fi rst carpometacarpal joint of left hand 08/01/2022 HTN, goal below 140/90 01/26/2022 Postprocedural hypoparathyroidism 08/08/2019 Celiac disease 07/25/2019 H/O parathyroidectomy Age-related osteoporosis wit hout current pathological fracture documented as of this encounter (statuses as of 04/15/2024) Resolved Problems Problem Noted Date Diagnosed Date Resolved Date Trigeminal neuralgia 05/06/2018 020 Colon polyp 12/03/2014 09/04/2019 Callous ulcer 12/03/2014 05/06/2018 Hammertoe 12/03/2014 09/04/2019 Bunion of left foot 12/03/2014 12/12/19 19 documented as of this encounter (statuses as of 04/15/2024) Immunizations Name Administration Dates Next Due COVID-19 [...] , IM, 0.5 mL (Fluzone) 04/04/2014 Seasonal Influenza Virus Vac cine, Unspecified Formulation 03/20/2021,03/18/2021,03/22/2020,02/27,03/20/2018,03/14/2017,03/20/2016 Seasonal Influenza, PF, 6 M & above, IM , (FluLaval or Fluzone) 03/22/2020,03/20/2018,03/14/2017 Seasonal Influenza, Quadriva lent Hd (Fluzone Hd) 04/17/2023,04/03/2022,03/18/2021 Seasonal Influenza, Quadriva lent, No Preserve, IM 03/20/2016,03/31/2015 Seasonal Influenza, Trivalen t, Adjuvanted, 65+ YRS, PF, (Fluad) 03/20/2021,02/27/2019 TDAP (age 10 and older)(Boostrix) 07/05/2013 TDAP, Age 7 and older, IM (Adacel) 02/14/2024 Varicella Zoster Vaccine (Adult) 12/26/2016 Zoster Vaccine Recombinant (Shingrix) 02/02/2020 ,12/03/2019 documented as of this encounter Social History Tobacco Use Types Packs/Day Years Used Date Smoking Tobacco: Former Cigarettes 0.5 2 0 06/18/1965 - 06/18/1967 Smokeless Tobacco: Never Tobacco Cessation:Counseling Given: No Alcohol Use Standard Drinks/Week Comments Not Currently 7 (1 standard drink = 0.6 oz [...] No 10/26/2023 Does the household have a re gular source of income? (Household - for ages [...] on file documented as of this encounter Last Filed Vital Signs Vital Sign Reading Time Taken Comments Blood Pressure 110/60 04/15/2024 8:24 AM EDT Pulse 66 04/15/2024 8:24 AM EDT Temperature 37.4 C (99.3 F) 04/15/2024 8:24 AM ED T Respiratory Rate 20 04/15/2024 8:24 AM EDT Oxygen Saturation 99% 04/15/2024 8:24 AM EDT Inhaled Oxygen Concentration - - Weight 53.9 kg (118 lb 12.8 oz) 04/15/2024 8:24 AM EDT Height 165.1 cm (5' 5") 04/15/2024 8:24 AM EDT Body Mass Index 19.77 04/15/2024 8:24 AM EDT documented in this encounter Progress Notes * Vicenta Westbrook MD - 04/15/2024 8:35 AM EDT SUBJECTIVE: Joanie Joyner is a 79 year old female. Chief Complaint Patient presents with Follow Up Nursing Notes: Kaur Jefferson, MED ASSIST 04/15/24 0827 Signed Joanie Joyner 79 year old female is here for a 1 week follow up. She would like to discuss flu vaccine today because she is uncertain with the problems she is having. Medications review and updated. HPI: Patient of seen 04/11/24 for acute appointment with symptoms of fatigue and generalized weakness for 1-1/2 weeks. Denies any fever or chills. No URI symptoms. No dizziness or palpitations. States blood pressure has also been low. No nausea vomiting or diarrhea but states had some loose stools once or twice a day. Low-grade fever noted History of hypertension on metoprolol for many years. EKG-NSR at 84 beats per minute, PACs Advised to hold metoprolol till follow-up appointment. , increase intake of fluids 04/14/24- normal BMP, LFT with high ALT, AST, alk-phos, slightly low albumin, new anemia with hemoglobin 11 decreased from 13; 2 years ago elevated platelets , maybe secondary to anemia/acute illness. US-RUQ_Ultrasound right upper abdomen shows multiple gallstones but no gallbladder thickening or surrounding fluid. There are multiple liver lesions and small cysts, raising suspicion for metastatic disease -MRI of the abdomen with and without contrast is advised for further evaluation. --is omar for today 04/14/24--CBC--Hb 10.7, Pl 586,nml wbc with sl left shift, LFT similar, FOBT neg Lab cx retic panel /reflex anemia w/u Past medical history-hypertension, dyslipidemia, primary hyper parathyroidism with history of left inferior parathyroid surgery in [place] in the past, recurrence of hyperparathyroidism, osteoporosis, on Prolia, followed by Endocrinology, celiac disease for 44 years, states she had an endoscopy in [facility] many years ago, is on a strict gluten free diet. Colonoscopy 03/19/2020 showed a 5 mm polyp 60 cm from the anus, repeat not recommended due to age. History of left wrist fracture dislocation 02/05/2024, had surgery by Dr. Shirley 01/31/2024. Reviewed ER records from then, she had CT scan of the head, face, C-spine showed no acute findings EKG showed normal sinus rhythm at 61 beats per minute. Fatigue is slightly improved, blood pressure is improved off metoprolol. Denies any palpitations chest pain or shortness of breath. No URI symptoms, no abdominal pain or pain going to the back. No nausea or vomiting, no postprandial abdominal pain, had 2 loose stools per day without blood or mucus.Had 1 episode of drenching night sweats 2 days ago but nothing yesterday. LFT 2021 normal Hemoglobin Results: Lab Results Component Value Date/Time HGB 10.7 (L) 04/14/2024 11:46 AM HGB 10.9 (L) 04/11/2024 11:22 AM HGB 13.1 02/17/2022 10:29 AM HGB 12.9 12/29/2014 07:10 AM ALT Results: Lab Results Component Value Date/Time ALT - [facility] 79 (H) 04/14/2024 11:46 AM ALT - [facility] 83 (H) 04/11/2024 11:22 AM ALT - [facility] 12 02/17/2022 10:29 AM ALT - [facility] 9 (L) 12/29/2014 07:10 AM TSH Results: Lab Results Component Value Date/Time TSH - [facility] 1.35 02/17/2022 10:29 AM TSH - [facility] 2.11 10/30/2016 07:24 AM TSH - [facility] 3.32 12/29/2014 07:10 AM Results for orders placed or performed in visit on 04/14/24 HEPATIC FUNCTION PANEL Result Value Ref Range Albumin 3.5 (L) 3.8 - 5.0 g/dL AST 66 (H) 10 - 35 U/L Alkaline Phosphatase 155 (H) 35 - 130 U/L ALT 79 (H) 10 - 35 U/L Bilirubin, Total 0.5 <=1.2 mg/dL Bilirubin, Direct <0.2 0.0 - 0.3 mg/dL Protein 7.9 6.0 - 8.3 g/dL ANEMIA CBC Result Value Ref Range WBC 10.67 4.00 - 10.80 K/uL RBC 3.86 3.85 - 5.15 M/uL HGB 10.7 (L) 12.0 - 15.3 g/dL HCT 34.3 (L) 36.0 - 45.2 % MCV 88.9 81.5 - 97.5 fL MCH 27.7 27.0 - 34.0 pg MCHC 31.2 32.0 - 36.0 g/dL RDW 14.2 11.5 - 15.5 % PLT 586 (H) 140 - 400 K/uL MPV 8.3 6.6 - 11.1 fL DIFFERENTIAL, AUTOMATED Result Value Ref Range WBC 10.67 4.00 - 10.80 K/uL Neutrophils % 75.7 (H) 40.0 - 75.0 % Lymphocytes % 15.3 (L) 18.0 - 42.0 % Monocytes % 7.8 1.0 - 11.0 % Eosinophils % 0.7 0.0 - 6.0 % Basophils % 0.5 0.0 - 2.0 % Absolute Neutrophils 8.08 (H) 1.80 - 7.70 K/uL Absolute Lymphocytes 1.63 1.00 - 4.80 K/ul Absolute Monocytes 0.83 0.00 - 1.10 K/uL Absolute Eosinophils 0.08 0.00 - 0.70 K/uL Absolute Basophils 0.05 0.00 - 0.20 K/uL 11/08-IMP This is a pleasant 78 year old female with a history of primary HPT s/b osteoporosis. She appears to have undergone successful parathyroid surgery in 2013 in [facility], at which time a left inferior parathyroid adenoma was removed. More recently, her calcium has risen with elevated PTH, suggestive of recurrent primary hyperparathyroidism. Recent use of a thiazide may have contributed to hypercalcemia as well but would not explain the hyperparathyroidism. We discussed recurrent hyperparathyroidism and management strategies in detail. Usually the criteria for reoperation are more stringent, including osteoporosis. However, she so far seems to be doing fairly well on Prolia. I recommend that we assess 24 hour urine calcium levels and obtain updated laboratories, now that she has been off hydrochlorothiazide since July. She then will be having a follow up DEXA scan performed in January. Based on the results, we can revisit next steps, which most likely will include observation with management of osteoporosis using Prolia. Should she continue to lose bone mass or fracture while taking Prolia, or develop severe hypercalcemia, nephrolithiasis, or renal insufficiency, repeat surgery could be revisited. PLAN Continue dietary calcium and current vitamin-D supplementation Keep mobile and well hydrated. Check 24h urine calcium/creatinine. When the patient returns the urine sample, check metabolic bone labs She will have her DEXA scan in January Most likely continue with the above measures and Prolia-prescribed by Rheumatology At least annual monitoring of serum calcium, creatinine. Avoid calcium supplements I'll be in touch with the patient re: the results and with any further recommendations. RTC tentatively in 1 year Rosana Arora MD Associate Physician Division of Endocrinology [facility] [address] [facility] [place] [address] 12/09--Labs look very good. PTH is just slightly high. urine ca -nml Patient Active Problem List Diagnosis H/O parathyroidectomy Age-related osteoporosis without current pathological fracture Celiac disease Postprocedural hypoparathyroidism (HCC) HTN, goal below 140/90 [place] of toe Primary osteoarthritis of first carpometacarpal joint of left hand Hyperlipidemia Fracture of left wrist with routine healing History of open reduction and internal fixation (ORIF) procedure Age-related osteoporosis with current pathological fracture Current Outpatient Medications Medication Sig Dispense Refill Multiple Vitamin (MULTIVITAMINS) Capsule Take 1 Capsule by mouth in the morning. Vitamin D, Cholecalciferol, 1000 units CAPS Take by mouth. B-12 1000 MCG Oral Tablet Take by mouth. Metoprolol Succinate ER 25 MG Oral Tablet Extended Release 24 Hour (toPROL XL) Take 1 Tablet by mouth in the morning. 90 Tablet 3 Current Facility-Administered Medications Medication Dose Route Frequency Provider Last Rate Last Admin Denosumab (Prolia) subcut inj 60 mg 60 mg Subcutaneous Q6 Months Raul Mckeon CRNP 60 mg at 08/29/23 1319 Review of patient's allergies indicates: Allergen Reactions Amoxicillin Rash Penicillins Rash Tegretol [Carbamazepine] Rash OBJECTIVE: BP 110/60 (BP Site: Left Arm, BP Position: Sitting, BP Cuff Size: Regular) | Pulse 66 | Temp 37.4 C (99.3 F) (Tympanic) | Resp 20 | Ht 1.651 m (5' 5") | Wt 53.9 kg (118 lb 12.8 oz) | SpO2 99% | BMI 19.77 kg/m | BSA 1.57 m PHYSICAL EXAM: General: alert, healthy, no distress, well nourished and well developed Head: Normocephalic, atraumatic Eye Exam: PERRLA, EOMI, Conjunctiva are pink and non-injected, sclera clear Ears: External ears normal, Nose: no mucosal erythema, no mucosal edema, no purulent discharge Oropharynx: no exudate and no erythema, tongue sl coated Neck: supple, no bruits, no JVD, thyroid normal size, non-tender, without nodularity Lymph: No palpable lymphadenopathy.in neck/axilla/groin Heart: Regular rhythm and rate, no murmurs and no gallops Lungs: lungs clear to auscultation Abdomen: Soft,mild tenderness right upper quadrant ,?mild hepatomegaly,normal bowel sounds, no masses or organomegaly, no bruits Extremities: no edema, no clubbing, no cyanosis. Neuro Exam: alert & oriented x 3 with fluent speech, no focal motor/sensory deficits, gait normal Skin: skin color, texture, turgor are normal, no rashes ASSESSMENT/PLAN: Abnormal LFTs (Primary) - LIPASE; Future; Expected date: 04/15/2024 - ADULT GASTROENTEROLOGY REFERRAL OP Abnormal ultrasound of liver - LIPASE; Future; Expected date: 04/15/2024 - ADULT GASTROENTEROLOGY REFERRAL OP Calculus of gallbladder without cholecystitis without obstruction - ADULT GASTROENTEROLOGY REFERRAL OP Abnormal CBC - FERRITIN; Future; Expected date: 04/15/2024 - IRON SCREEN, INCLUDING TIBC; Future; Expected date: 04/15/2024 - VITAMIN B12; Future; Expected date: 04/15/2024 - FOLIC ACID; Future; Expected date: 04/15/2024 - ADULT GASTROENTEROLOGY REFERRAL OP H/O parathyroidectomy Closed fracture of left wrist with routine healing, subsequent encounter Age-related osteoporosis with current pathological fracture with routine healing, subsequent encounter HTN, goal below 140/90 Celiac disease - ADULT GASTROENTEROLOGY REFERRAL OP History of colonoscopy with polypectomy - ADULT GASTROENTEROLOGY REFERRAL OP Anemia, unspecified type - FERRITIN; Future; Expected date: 04/15/2024 - IRON SCREEN, INCLUDING TIBC; Future; Expected date: 04/15/2024 - VITAMIN B12; Future; Expected date: 04/15/2024 - FOLIC ACID; Future; Expected date: 04/15/2024 --new onset anemia, abnormal LFT, abdominal discomfort, abnormal ultrasound right upper quadrant, to schedule MRI abdomen as soon as possible, refer to GI, add on lab Continue stay off metoprolol, call if any palpitations or any symptoms of high blood pressure like headache or dizziness or shortness of breath. -labs added on--normal lipase, iron levels suggestive of anemia of chronic disease, B12 >2000, folic acid >20-can decrease B12 to half the dose you are currently taking Follow Up: Return in about 4 weeks (around 05/13/2024), or if symptoms worsen or fail to improve, for Return with Physician. | For: Return with Physician | Check-out note: OMAR MRI abdomen BRANDON (This note was completed using the dictation program Fluency Direct. As such, there may be misspellings, word substitutions, or other variations that should not change the essence of the clinical content of this encounter note. If there is need for further clarification, please direct questions to the provider listed above.) Patient and / caregiver verbalize understanding of above instructions and agrees with plan of care. Vicenta Westbrook MD 04/11/2024 documented in this encounter Nursing Notes * Kaur Jefferson MED ASSIST - 04/15/2024 8:19 AM EDT Joanie Joyner 79 year old female is here for a 1 week follow up. She would like to discuss flu vaccine today because she is uncertain with the problems she is having. Medications review and updated. documented in this encounter Plan of Treatment Upcoming Encounters Date Type Department Care Team (Late st Contact Info) Description 04/17/2024 9:40 AM EDT Office Visit Podiatry [facility] [address] [place] [address] Danielle Haley DPM [address] [place] [address] 04/23/2024 11:00 AM EST Office Visit Gastroenterology, [facility] [address] [place] [address] Yocasta Phillips CRNP [address] [place] [address] 05/13/2024 8:20 AM EST Office Visit General Internal Medicine [facility] [address] [place] [address] Vicenta Westbrook MD [address] [facility] [place] [address] 08/21/2024 7:40 AM EST Office Visit Family Practice [facility] [address] [place] [address] Sadia Almonte DO [address] [facility] [place] [address] 09/09/2024 2:00 PM EDT Office Visit Rheumatology [facility] [address] [place] [address] Raul Mckeon CRNP [address] [place] [address] 11/05/2024 8:20 AM EDT Telemedicine Endocrinology [facility] [address] [place] [phone] Monae Parekh MD [address] [place] [address] Scheduled Procedures Name Priority Associated Diagnoses Date/Ti me COLONOSCOPY FLEXIBLE PROXIMAL DIAGNOSTIC Recall History of colon polyps Scheduled Referrals Name Type Priority Associated Diagnoses Orde r Schedule ADULT GASTROENTEROLOGY REFERRAL OP Referral Within 10 days (routine) Abnormal LFTs Abnormal ultrasound of liver Calculus of gallbladder without cholecystitis without obstruction Abnormal CBC Celiac disease History of colonoscopy with polypectomy Ordered: 04/15/2024 Health Maintenance Due Date Last Done Comments Adult Wellness Visit 2009 Influenza Vaccine (FLU shot) (#1) 2024 04/17/2023, 04/03/2022, 03/20/2021, Additional history exists COVID-19 Vaccine ( season) 2024 03/07/2022, 10/04/2021, 04/22/2021, Additional history exists Postponed from 02/17/2024 (Unavailable) GFR 04/11/2025 04/11/2024, 11/16, 02/12/2023, Additional history exists Depression Screening 04/15/2025 04/15/2024 Albumin/Creatinine Ratio 08/03/2025 08/03/2022 DXA Scan 01/20/2026 01/21/2024, 0810/2023, 01/11/2022, Additional history exists DTap/Tdap Vaccines (3 - Td or Tdap) 02/13/2034 02/14/2024, 07/05/2013 Pneumococcal Vaccine: 65+ Years Completed 10/26/2016, 05/27/2015 Zoster Vaccines Completed 02/02/2020, 11/16, 12/26/2016 RETIRED - COLONOSCOPY-EVERY 5 YRS AGES 18-100 Discontinued 03/19/2020, 03/19/2020, 03/09/2015, Additional history exists VITAMIN D LEVEL ONCE IN A LIFETIME-USE SMARTSET# [id number] Completed 04/11/2024, 11/29/2023, 08/22/2023, Additional history exists [...] Not on filedocumented as of this encounter Results * FOLIC ACID (04/14/2024 11:46 AM EDT) Folic Acid >20.0 >4.5 ng/mL 04/15/2024 3:43 PM EDT LAB[facility]ATORY [facility] Blood Venous blood specimen / Unknown Venipuncture / Unknown 04/14/2024 11:46 AM EDT 04/14/2024 11:46 AM EDT Vicenta Westbrook MD LAB BLOOD ORDERABLES Performing Organization Address City/[facility] Co de Phone Number LABORATORY [facility] [address] [place] [address] * (ABNORMAL) VITAMIN B12 (04/14/2024 11:46 AM EDT) Vitamin B12 >2,000(H) 232 - 1,245 pg/mL 04/15/2024 3:43 PM EDT LAB[facility]ATORY [facility] Blood Venous blood specimen / Unknown Venipuncture / Unknown 04/14/2024 11:46 AM EDT 04/14/2024 11:46 AM EDT Vicenta Westbrook MD LAB BLOOD ORDERABLES LABORATORY [facility] [address] [place] [address] * (ABNORMAL) IRON SCREEN, INCLUDING TIBC (04/14/2024 11:46 AM EDT) Iron 16(L) 33 - 151 ug/dL 04/15/2024 2:17 PM EDT LAB[facility]ATORY [facility] Iron Binding Capacity 236(L) 250 - 425 ug/dL 04/15/2024 2:17 PM EDT LAB[facility]ATORY [facility] Transferrin Saturation Percent 7(L) 15 - 55 % 04/15/2024 2:17 PM EDT LABORATORY C Blood Venous blood specimen / Unknown Venipuncture / Unknown 04/14/2024 11:46 AM EDT 04/14/2024 11:46 AM EDT Vicenta Westbrook MD LAB BLOOD ORDERABLES Performing Organization Address [facility] de Phone Number LABORATORY [place] [address] [place] [address] * (ABNORMAL) FERRITIN (04/14/2024 11:46 AM EDT) Ferritin 445(H) 13 - 150 ng/mL 04/15/2024 3:43 PM EDT LABORATORY C Comment:Postmenopausal women have higher ferritin levels than pre-menopausal women. The above reference interval is based on pre-menopausal women. Blood Venous blood specimen / Unknown Venipuncture / Unknown 04/14/2024 11:46 AM EDT 04/14/2024 11:46 AM EDT Vicenta Westbrook MD LAB BLOOD ORDERABLES Performing Organization Address [facility] de Phone Number LABORATORY [facility] [address] [place] [address] * LIPASE (04/14/2024 11:46 AM EDT) Lipase 43 13 - 60 U/L 04/15/2024 2:17 PM EDT LABORATORY [facility] Blood Venous blood specimen / Unknown Venipuncture / Unknown 04/14/2024 11:46 AM EDT 04/14/2024 11:46 AM EDT Vicenta Westbrook MD LAB BLOOD ORDERABLES Performing Organization Address City/[facility] Co de Phone Number LABORATORY [facility] [address] [place] [address] documented in this encounter Visit Diagnoses Diagnosis Abnormal LFTs- Primary Other abnormal blood chemistry Abnormal ultrasound of liver Nonspecific (abnormal) findings on radiological and other examination of biliary tract Calculus of gallbladder without cholecystitis without obstruction Calculus of gallbladder without mention of cholecystitis or obstruction Abnormal CBC Other abnormal blood chemistry H/O parathyroidectomy Personal history of surgery to other organs Closed fracture of left wrist with routine healing, subsequent encounter Age-related osteoporosis with current pathological fracture with routine healing, subsequent encounter HTN, goal below 140/90 Unspecified essential hypertension Celiac disease History of colonoscopy with polypectomy Other postprocedural status Anemia, unspecified type documented in this encounter Care Teams Shuttle Final Inspector Relationship Specialty Start Date End Date Sadia [place]te [place] [place] [address] PCP - General Family Medicine 11/23/16 documented as of this encounter
--- OUTSIDE RECORDS SUMMARY | 2024-04-16 23:59 | External Medical Summary ---
Author Name Unknown Address Unknown Organization [id number]:LABORATORY [facility] [place] [address] [place] [address] Laboratory Report Ordering Provider Test Date Status SISSY MCCOLLUM 04/14/2024 11:46:00 Final Observation Date Value Abnormality Reference (Units ) Status Vitamin B12 04/14/2024 11:46:00 >2000 Above high normal 232-1245 (pg/mL) Final Performing Location LAB[facility] [place] [address] [place] [address]
--- OUTSIDE RECORDS SUMMARY | 2024-04-16 23:59 | External Medical Summary | Summary of Care ---
Author Name Unknown Organization [facility] Address [address] [place] [address] Phone [phone] Care Team Providers Care Fish Cleaner Name Role Phone Sadia Almonte Primary Care Provider Reason for Visit * Reason Onset Date Comments Test Results 04/14/2024 Encounter Details Date Type Department Care Team (Late st Contact Info) Description 04/14/2024 Telephone General Internal Medicine [facility] [address] [place] [address] Vicenta Westbrook MD 200 [place] [address] Test Results Allergies Active Allergy Reactions Criticality Noted Date [...] inj 60 mgIndications:Senile osteoporosis 60 mg SC [id number] 08/29/2023 08/23/2024 Active documented as of this encounter (statuses as of 04/14/2024) Active Problems Problem Noted Date Diagnosed Date Fracture of left wrist with routine healing 01/17 History of open reduction an d internal fixation (ORIF) procedure 02/14/2024 Age-related osteoporosis with current pathologic al fracture 02/14/2024 Hyperlipidemia 08/16/2023 [place] of toe 08/01/2022 Primary osteoarthritis of fi [...] encounter Miscellaneous Notes * Telephone Encounter - Danya Wilson LPN - 04/14/2024 8:04 AM EDT Patient aware and verbalized understanding, will comply. Patient will repeat blood work after her US this morning and ask for the FOBT kit. * Telephone Encounter - Wesley Ghotra RN - 04/14/2024 7:25 AM EDT Called, left message for patient to return call to the dedicated nurse call center. Also sent MyG message for patient to call dedicated nurse call center. Please see Dr. Westbrook's previous message. * Telephone Encounter - Wesley Ghotra RN - 04/14/2024 7:22 AM EDT ----- Message from Vicenta Westbrook MD sent at 04/14/2024 12:39 AM EDT ----- Labs-some normal BMP, LFT with high ALT, AST, alk-phos, slightly low albumin, new anemia with hemoglobin 11 decreased from 13; 2 years ago elevated platelets , maybe secondary to anemia/acute illness. She is scheduled for ultrasound today, repeat CBC with iron levels, liver functions, submit stool for FOBT-pharmacy picking tech kit at [facility] today documented in this encounter Plan of Treatment Upcoming Encounters Date Type Department Care Team (Late st Contact Info) Description 04/14/2024 11:15 AM EDT Imaging Radiology [facility] 2nd [facility] 132 [facility] [place] [address] 04/15/2024 8:20 AM EDT Office Visit General Internal Medicine [facility] [address] [place] [address] Vicenta Westbrook MD 200 [facility] [place] [address] 04/17/2024 9:40 AM EDT Office Visit Podiatry [facility] 132 [facility] [place] [address] Danielle Haley DPM 132 [facility] [place] [address] 08/21/2024 7:40 AM EST Office Visit Family Practice [facility] [address] [place] [address] Sadia Almonte DO [address] [place] [address] 09/09/2024 2:00 PM EDT Office Visit Rheumatology [place] [address] [place] [address] Raul Mckeon CRNP [facility] [place] [address] 11/05/2024 8:20 AM EDT Telemedicine Endocrinology [address] [place], [place] [address] Monae Parekh MD [address] [facility] [place] [address] Scheduled Procedures Name Priority Associated Diagnoses [...] D LEVEL ONCE IN A LIFETIME-USE SMARTSET# [id number] Completed 04/11/2024, 11/29/2023, 08/22/2023, Additional history exists [...] filedocumented as of this encounter Care Teams Fish Cleaner Relationship Specialty Start Date End Date Sadia Almonte DO [address] [place] [address] PCP - General Family Medicine 11/23/16 documented as of this encounter
--- OUTSIDE RECORDS SUMMARY | 2024-04-16 23:59 | External Medical Summary | Summary of Care ---
Author Name Unknown Organization [facility] Address [address] [place] [address] Phone [phone] Care Team Providers Care Sign Installer Name Role Phone Sadia Almonte Primary Care Provider Reason for Referral * Precert (Within 10 days (routine)) - Authorized Specialty Diagnoses / Procedures Referred By Aidee farmer Referred To Contact Radiology Diagnoses Abnormal LFTs Abnormal ultrasound of liver Calculus of gallbladder without cholecystitis without obstruction Procedures MRI ABDOMEN W WO CONTRAST Veda Westbrook MD 200 [facility] [place] [address] Referral ID Status Reason Start Date Expiration Date V isits Requested Visits Authorized [id number] Authorized 04/14/2024 999 999 Reason for Visit * Reason Onset Date Comments Test Results 04/14/2024 Unexpected or In determinate Result Encounter Details Date Type Department Care Team (Late st Contact Info) Description 04/14/2024 Telephone General Internal Medicine [facility] [place] 200 [facility] [place] [address] Veda Westbrook MD 200 [place], [place] [phone] Test Results (Unexpected or Indeterminate ... Allergies [...] inj 60 mgIndications:Senile osteoporosis 60 mg SC [id number] 08/29/2023 08/23/2024 Active documented as of this encounter (statuses as of 04/14/2024) Active Problems Problem Noted Date Diagnosed Date Fracture of left wrist with routine healing 01/17 History of open reduction an d internal fixation (ORIF) procedure 02/14/2024 Age-related osteoporosis with current pathologic al fracture 02/14/2024 Hyperlipidemia 08/16/2023 [place] of toe 08/01/2022 Primary osteoarthritis of fi [...] 10/26/2023 Does the household have a re lar source of income? (Household - for ages [...] encounter Miscellaneous Notes * Telephone Encounter - Wesley Ghotra RN - 04/14/2024 2:23 PM EDT Called patient and informed her of Dr. Westbrook's previous message. She verbalized understanding of all information and is agreeable to MRI. Scheduling: Please schedule patient for MRI as soon as possible per Dr. Westbrook's previous message. * Addendum Note - Veda Westbrook MD - 04/14/2024 1:57 PM EDTAddended by: VEDA WESTBR[place] on: 04/14/2024 01:57 PM Modules accepted: Orders * Telephone Encounter - Veda Westbrook MD - 04/14/2024 1:55 PM EDT Ultrasound right upper abdomen shows multiple gallstones but no gallbladder thickening or surrounding fluid. There are multiple liver lesions and small cysts, MRI of the abdomen with and without contrast is advised for further evaluation. - please call her and omar BRANDON. * Telephone Encounter - Marina Pompa, [employer] - 04/14/2024 1:18 PM EDT Please review. * Telephone Encounter - Toshia Dinh OSA - 04/14/2024 12:49 PM EDT Hello- The radiologist discovered an unexpected or indeterminate finding on Joanie Joyner ([id number]) and asks that you review the following [...] you, MAXIM Mendenhall Client Service Rep [facility] documented in this encounter Plan of Treatment Upcoming Encounters Date Type Department Care Team (Late st Contact Info) Description 04/15/2024 8:20 AM EDT Office Visit General Internal Medicine [facility] [address] [place] [address] Veda Westbrook MD 200 [facility] [place] [address] 04/17/2024 9:40 AM EDT Office Visit Podiatry [facility] [address] [facility] [place] [address] Danielle Haley DPM [address] [facility] [place] [address] 08/21/2024 7:40 AM EST Office Visit Family Practice [facility] [address] [place] [address] Sadia Almonte DO 200 [facility] [place] [address] 09/09/2024 2:00 PM EDT Office Visit Rheumatology [facility] [address] [facility] [place] [address] Raul Mckeon CRNP [address] [facility] [place] [address] 11/05/2024 8:20 AM EDT Telemedicine Endocrinology [address] [place] [address] Monae Parekh MD 100 [address] [facility] [place] [id number] Scheduled Orders Name Type Priority Associated Diagnoses Orde r Schedule MRI ABDOMEN W WO CONTRAST Medical Imaging Routine Abnormal LFTs Abnormal ultrasound of liver Calculus of gallbladder without cholecystitis without obstruction Expected: 04/14/2024, Expires: 05/15/2025 Scheduled Procedures Name Priority Associated Diagnoses Date/Ti [...] Ratio 08/03/2025 08/03/2022 DXA Scan 01/20/2026 01/21/2024, 10/2023, 01/11/2022, Additional history exists DTap/Tdap Vaccines (3 - Td or Tdap) 02/13/2034 02/14/2024, 07/05/2013 Pneumococcal Vaccine: 65+ Years Completed 10/26/2016, 05/27/2015 Zoster Vaccines Completed 02/02/2020, 11/16, 12/26/2016 RETIRED - COLONOSCOPY-EVERY 5 YRS AGES 18-100 Discontinued 03/19/2020, 03/19/2020, 03/09/2015, Additional history exists VITAMIN D LEVEL ONCE IN A LIFETIME-USE SMARTSET# [id number] Completed 04/11/2024, 11/29/2023, 08/22/2023, Additional history exists [...] Not on filedocumented as of this encounter Visit Diagnoses Diagnosis Abnormal LFTs- Primary Other abnormal blood chemistry Abnormal ultrasound of liver Nonspecific (abnormal) findings on radiological and other examination of biliary tract Calculus of gallbladder without cholecystitis without obstruction Calculus of gallbladder without mention of cholecystitis or obstruction documented in this encounter Care Teams Sign Installer Relationship Specialty Start Date End Date Sadia Almonte DO [address] [place] [address] PCP - General Family Medicine 11/23/16 documented as of this encounter
--- OUTSIDE RECORDS SUMMARY | 2024-04-16 23:59 | External Medical Summary | Summary of Care ---
Author Name Unknown Organization [facility] Address [address] [place] [address] Phone [phone] Care Team Providers Care Employee Service Officer Name Role Phone Sadia Almonte Kayla Primary [...] with polypectomy Vicenta Westbrook MD 200 [facility] [place] [place] [address] Referral ID Status Reason Start Date Expiration Date Visits Requested Visits Authorized [id number] Authorized Specialty Services Required 4 999 999 Question Answer Referral Priority Within 10 days (routine) Where should this appointment be scheduled? [facility] For what condition is the patient being referred? All Gastro Conditions Reason for Visit * Reason Comments Follow Up Encounter Details Date Type Department Care Team (Latest Contact Info) Description 04/15/2024 8:20 AM EDT Office Visit General Internal Medicine [address] [place] [address] [place] [address] Vicenta Westbrook MD 200 [place] [address] Abnormal LFTs*; Abnormal ultrasound of liver; Calculus [...] inj 60 mgIndications:Senile osteoporosis 60 mg SC [id number] 08/29/2023 08/23/2024 Active documented as of this encounter (statuses as of 04/15/2024) Active Problems Problem Noted Date Diagnosed Date Fracture of left wrist with routine healing 01/17 History of open reduction an d internal fixation (ORIF) procedure 02/14/2024 Age-related osteoporosis with current pathologic al fracture 02/14/2024 Hyperlipidemia 08/16/2023 [place] of toe 08/01/2022 Primary osteoarthritis of fi [...] Date Recorded PHQ Adult Total Score 0 04/15/2024 Hunger Vital Sign Answer Date Recorded Within [...] history of left inferior parathyroid surgery in [place] in the past, recurrence of hyperparathyroidism, osteoporosis, on Prolia, followed by Endocrinology, celiac disease for 44 years, states she had an endoscopy in [facility] many years ago, is on a strict [...] undergone successful parathyroid surgery in 2013 in [facility], at which time a left inferior parathyroid [...] Arora MD Associate Physician Division of Endocrinology [facility] [address] [place] [facility] [place] [address] 12/09--Labs look very good. PTH is just slightly high. urine ca -nml Patient Active Problem List Diagnosis H/O parathyroidectomy Age-related osteoporosis without current pathological fracture Celiac disease Postprocedural hypoparathyroidism (HCC) HTN, goal below 140/90 [place] of toe Primary osteoarthritis of first carpometacarpal [...] 04/17/2024 9:40 AM EDT Office Visit Podiatry [facility] [address] [place] [address] Danielle Haley DPM [address] [place] [address] 04/23/2024 11:00 AM EST Office Visit Gastroenterology, [facility] [address] [place] [address] Yocasta Phillips CRNP [address] [place] [address] 05/13/2024 8:20 AM EST Office Visit General Internal Medicine [facility] [address] [place] [address] Vicenta Westbrook MD [address] [facility] [place] [address] 08/21/2024 7:40 AM EST Office Visit Family Practice [facility] [address] [place] [address] Sadia Almonte DO [address] [facility] [place] [address] 09/09/2024 2:00 PM EDT Office Visit Rheumatology [facility] [address] [place] [address] Raul Mckeon CRNP [address] [place] [address] 11/05/2024 8:20 AM EDT Telemedicine Endocrinology [place] [...] D LEVEL ONCE IN A LIFETIME-USE SMARTSET# [id number] Completed 04/11/2024, 11/29/2023, 08/22/2023, Additional history exists [...] MD LAB BLOOD ORDERABLES Performing Organization Address City/[facility] Co de Phone Number LABORATORY [facility] [address] [place] [address] * (ABNORMAL) VITAMIN B12 (04/14/2024 11:46 AM EDT) Vitamin B12 >2,000(H) 232 - 1,245 pg/mL 04/15/2024 3:43 PM EDT LABORATORY [facility] Blood Venous blood specimen / Unknown Venipuncture / Unknown 04/14/2024 11:46 AM EDT 04/14/2024 11:46 AM EDT Vicenta Westbrook MD LAB BLOOD ORDERABLES LABORATORY [facility] [address] [place] [address] * (ABNORMAL) IRON SCREEN, INCLUDING TIBC (04/14/2024 [...] MD LAB BLOOD ORDERABLES Performing Organization Address [facility] de Phone Number LABORATORY [place] [address] [place] [address] * (ABNORMAL) FERRITIN (04/14/2024 11:46 AM EDT) Ferritin 445(H) 13 - 150 ng/mL 04/15/2024 3:43 PM EDT LABORATORY C Comment:Postmenopausal women have higher ferritin levels than pre-menopausal women. The above reference interval is based on pre-menopausal women. Blood Venous blood specimen / Unknown Venipuncture / Unknown 04/14/2024 11:46 AM EDT 04/14/2024 11:46 AM EDT Vicenta Westbrook MD LAB BLOOD ORDERABLES Performing Organization Address [facility] de Phone Number LABORATORY [facility] [address] [place] [address] * LIPASE (04/14/2024 11:46 AM EDT) Lipase 43 13 - 60 U/L 04/15/2024 2:17 PM EDT LAB[facility]ATORY [facility] Blood Venous blood specimen / Unknown Venipuncture / Unknown 04/14/2024 11:46 AM EDT 04/14/2024 11:46 AM EDT Vicenta Westbrook MD LAB BLOOD ORDERABLES Performing Organization Address City/[facility] Co de Phone Number LABORATORY [facility] [address] [place] [address] documented in this encounter Visit Diagnoses Diagnosis [...] type documented in this encounter Care Teams Employee Service Officer Relationship Specialty Start Date End Date Sadia Almonte [place] [place] [address] PCP - General Family Medicine 11/23/16 documented as of this encounter
--- OUTSIDE RECORDS SUMMARY | 2024-04-16 23:59 | External Medical Summary | Summary of Care ---
Author Name Unknown Organization [facility] Address [address] [place] [address] Phone [phone] Care Team Providers Care Music Theory Professor Name Role Phone Sadia Almonte Primary Care Provider Reason for Visit * Reason Onset Date Comments Test Results 04/14/2024 Unexpected or In determinate Result Encounter Details Date Type Department Care Team (Late st Contact Info) Description 04/14/2024 Telephone General Internal Medicine [facility] [address] [place] [address] Vicenta Westbrook MD 200 [place] [address] Test Results (Unexpected or Indeterminate ... Allergies [...] inj 60 mgIndications:Senile osteoporosis 60 mg SC [id number] 08/29/2023 08/23/2024 Active documented as of this encounter (statuses as of 04/14/2024) Active Problems Problem Noted Date Diagnosed Date Fracture of left wrist with routine healing 01/17 History of open reduction an d internal fixation (ORIF) procedure 02/14/2024 Age-related osteoporosis with current pathologic al fracture 02/14/2024 Hyperlipidemia 08/16/2023 [place] of toe 08/01/2022 Primary osteoarthritis of fi [...] No 10/26/2023 Does the household have a [facility] source of income? (Household - [...] encounter Miscellaneous Notes * Telephone Encounter - Marina Pompa MED ANTHONY - 04/14/2024 1:18 PM EDT Please review. * Telephone Encounter - Toshia Dinh OSA - 04/14/2024 12:49 PM EDT Hello- The radiologist discovered an unexpected or indeterminate finding on Joanie Joyner ([id number]) and asks that you review the following [...] Thank you, MAXIM Mendenhall Client Service Rep [facility] Medicine [place] documented in this encounter Plan of Treatment Upcoming Encounters Date Type Department Care Team (Late st Contact Info) Description 04/15/2024 8:20 AM EDT Office Visit General Internal Medicine [facility] 200 [facility] [place] [address] Vicenta Westbrook MD 200 [facility] [place] [address] 04/17/2024 9:40 AM EDT Office Visit Podiatry [facility] [address] [facility] [place] [address] Danielle Haley DPM [address] [place] [address] 08/21/2024 7:40 AM EST Office Visit Family Practice [facility] 200 [facility] [place] [address] Sadia Almonte, 200 [facility] [place] [address] 09/09/2024 2:00 PM EDT Office Visit Rheumatology [address] [place] [address] Raul Mckeon CRNP [facility] [place] [address] 11/05/2024 8:20 AM EDT Telemedicine Endocrinology [address] [place] [address] Monae Parekh MD 100 [address] [facility] [place] [address] Scheduled Procedures Name [...] D LEVEL ONCE IN A LIFETIME-USE SMARTSET# [id number] Completed 04/11/2024, 11/29/2023, 08/22/2023, Additional history exists [...] filedocumented as of this encounter Care Teams Music Theory Professor Relationship Specialty Start Date End Date Sadia Almonte DO [address] [place] [address] PCP - General Family Medicine 11/23/16 documented as of this encounter
--- OUTSIDE RECORDS SUMMARY | 2024-04-16 23:59 | External Medical Summary | Summary of Care ---
Author Name Unknown Organization [facility] Address [address] [place] [address] Phone [phone] Care Team Providers Care Lobsterman Name Role Phone Suzy Sadia Garza DO Primary Care Provider Reason for Visit * Reason Comments Outpatient Testing Encounter Details Date Type Department Care Team (Late st Contact Info) Description 04/14/2024 12:10 PM EDT Laboratory Laboratory, [facility] [address] [place] [phone] [facility] [address] [place] [address] Anemia, unspecified type; Abnormal LFTs; [...] inj 60 mgIndications:Senile osteoporosis 60 mg SC [id number] 08/29/2023 08/23/2024 Active documented as of this encounter (statuses as of 04/14/2024) Active Problems Problem Noted Date Diagnosed Date Fracture of left wrist with routine healing 01/17 History of open reduction an d internal fixation (ORIF) procedure 02/14/2024 Age-related osteoporosis with current pathologic al fracture 02/14/2024 Hyperlipidemia 08/16/2023 [place] of toe 08/01/2022 Primary osteoarthritis of fi [...] No 10/26/2023 Does the household have a unm cancer centerlar source of income? (Household - for [...] as of this encounter Miscellaneous Notes * Addendum Note - Saravanan Kirk TECH - 04/14/2024 5:31 PM EDTAddended by: SARAVANAN KIRK on: 04/14/2024 05:31 PM Modules accepted: Orders documented in this encounter Plan of Treatment Upcoming Encounters Date Type Department Care Team (Late st Contact Info) Description 04/15/2024 8:20 AM EDT Office Visit General Internal Medicine [address]anna [address] [place] [address] [place] [address] [address] Vicenta Westbrook MD [address] [place] [address] 04/17/2024 9:40 AM EDT Office Visit Podiatry [facility] 132 [facility] [place] [address] Danielle Haley, DPM [address] [place] [address] 08/21/2024 7:40 AM EST Office Visit Family Practice [facility] 200 [facility] [place] [address] Sadia Almonte, 200 [facility] [place] [address] 09/09/2024 2:00 PM EDT Office Visit Rheumatology [facility] [address] [place] [address] Raul Mckeon CRNP [address] [facility] [place] [address] 11/05/2024 8:20 AM EDT Telemedicine Endocrinology [address] [place] [address] [place] [address] Monae Parekh MD [address] [place] [address] Pending Results Name Type Priority Associated Diagnoses Date /Time CBC WITH WBC DIFFERENTIAL AND ANEMIA REFLEX WORKUP Lab STAT Anemia, unspecified type Abnormal LFTs Celiac disease 04/14/2024 11:46 AM EDT EXTRA TUBES Lab Routine 04/14/2024 11 :45 AM EDT EXTRA GREEN TOP WITH GEL Lab Routine 04/14/2024 11:45 AM EDT Scheduled Orders Name Type Priority Associated Diagnoses Orde r Schedule ANEMIA REFLEX CHEMISTRY HOLD Lab STAT Anemia, unspecified type Abnormal LFTs Celiac disease Ordered: 04/14/2024 Scheduled Procedures Name Priority Associated Diagnoses Date/Ti [...] D LEVEL ONCE IN A LIFETIME-USE SMARTSET# [id number] Completed 04/11/2024, 11/29/2023, 08/22/2023, Additional history exists [...] Anemia, unspecified type Abnormal LFTs Celiac disease HEPATIC FUNCTION PANEL STAT 04/14/2024 11:46 AM EDT Anemia, unspecified [...] BLOOD ORDERABLES LABORATORY [place] [address] [facility] [place] [address] * (ABNORMAL) ANEMIA CBC (04/14/2024 11:46 AM [...] ORDERABLES LABORATORY [place] [address] [place] [address] * (ABNORMAL) HEPATIC FUNCTION PANEL (04/14/2024 11:46 AM EDT) Albumin 3.5(L) 3.8 - 5.0 g/dL 04/14/2024 12:16 PM EDT LABORATORY [place] 57-10 AST 66(H) 10 - 35 U/L 04/14/2024 12:16 PM EDT LABORATORY [place] 57-10 Alkaline Phosphatase 155(H) 35 - 130 U/L 04/14/2024 12:16 PM EDT LABORATORY [place] 57-10 ALT 79(H) 10 - 35 U/L 04/14/2024 12:16 PM EDT LABORATORY [place] 57-10 Bilirubin, Total 0.5 <=1.2 mg/dL 04/14/2024 12:16 PM EDT LABORATORY [place] 57-10 Bilirubin, Direct <0.2 0.0 - 0.3 mg/dL 04/14/2024 12:16 PM EDT LABORATORY [place] 57-10 Protein 7.9 6.0 - 8.3 g/dL 04/14/2024 12:16 PM EDT LABORATORY [place] 57-10 Blood Venous blood specimen / Unknown Venipuncture / Unknown 04/14/2024 11:46 AM EDT 04/14/2024 11:46 AM EDT Vic[place] Westbrook MD LAB BLOOD ORDERABLES LABORATORY [place] [address] [place] [address] documented in this encounter Visit Diagnoses Diagnosis Anemia, unspecified type Abnormal LFTs Other abnormal blood chemistry Celiac disease documented in this encounter Care Teams Lobsterman Relationship Specialty Start Date End Date Sadia Almonte DO [address] [place] [address] PCP - General Family Medicine 11/23/16 documented as of this encounter
--- OUTSIDE RECORDS SUMMARY | 2024-04-16 23:59 | External Medical Summary ---
Author Name Unknown Address Unknown Organization K01:LABORATORY [facility] - [address] [facility] [place] [facility] [address] Laboratory Report Ordering Provider Test Date Status VEDA,SISSY 04/14/2024 11:46:00 Final Observation Date Value Abnormality Reference (Units ) Status Ferritin 04/14/2024 11:46:00 445 Above high normal 13 -150 (ng/mL) Final Postmenopausal women have hi gher ferritin levels than pre-menopausal women. The above reference interval is based on pre-menopausal women. Performing Location LABORATORY [facility] - [address] [facility] [address]
--- OUTSIDE RECORDS SUMMARY | 2024-04-16 23:59 | External Medical Summary | Summary of Care ---
Author Name Unknown Organization [facility] Address [address] [place] [address] Phone [phone] Care Team Providers Care Hash Slinger Name Role Phone Sadia Almonte Primary Care Provider Reason for Referral * Precert (Within 10 days (routine)) - Authorized Specialty Diagnoses / Procedures Referred By Aidee farmer Referred To Contact Radiology Diagnoses Abnormal LFTs Abnormal ultrasound of liver Calculus of gallbladder without cholecystitis without obstruction Procedures MRI ABDOMEN W WO CONTRAST Veda Westbrook MD 200 [place] [address] Referral ID Status Reason Start Date Expiration Date V isits Requested Visits Authorized [id number] Authorized 04/14/2024 999 999 Reason for Visit * Reason Onset Date Comments Test Results 04/14/2024 Unexpected or In determinate Result Encounter Details Date Type Department Care Team (Late st Contact Info) Description 04/14/2024 Telephone General Internal Medicine [facility] [place] [address] [facility] [place] [address] Veda Westbrook MD [address] [place], [place] [id number] Test Results (Unexpected or Indeterminate ... Allergies [...] inj 60 mgIndications:Senile osteoporosis 60 mg SC [id number] 08/29/2023 08/23/2024 Active documented as of this encounter (statuses as of 04/14/2024) Active Problems Problem Noted Date Diagnosed Date Fracture of left wrist with routine healing 01/17 History of open reduction an d internal fixation (ORIF) procedure 02/14/2024 Age-related osteoporosis with current pathologic al fracture 02/14/2024 Hyperlipidemia 08/16/2023 [place] of toe 08/01/2022 Primary osteoarthritis of fi [...] encounter Miscellaneous Notes * Addendum Note - Veda Westbrook MD [...] BRANDON. * Telephone Encounter - Marina Pompa, [employer] - 04/14/2024 1:18 PM EDT Please review. * Telephone Encounter - Toshia Dinh OSA - 04/14/2024 12:49 PM EDT Hello- The radiologist discovered an unexpected or indeterminate finding on Joanie Joyner ([id number]) and asks that you review the following [...] reviewed. Thank you, MAXIM Mendenhall Client Service [facility] documented in this encounter Plan of Treatment Upcoming Encounters Date Type Department Care Team (Late st Contact Info) Description 04/15/2024 8:20 AM EDT Office Visit General Internal Medicine [facility] [address] [facility] [place] [address] Veda Westbrook MD 200 [facility] [place] [address] 04/17/2024 9:40 AM EDT Office Visit Podiatry [facility] 132 [facility] [place] [address] Danielle Haley, DPM [address] [place] [address] 08/21/2024 7:40 AM EST Office Visit Family Practice [facility] [address] [place] [address] Sadia Almonte, DO 200 [facility] [place] [address] 09/09/2024 2:00 PM EDT Office Visit Rheumatology [facility] [address] [place] [address] Raul Mckeon CRNP [address] [place] [address] 11/05/2024 8:20 AM EDT Telemedicine Endocrinology [address] [place] [address] Monae Parekh MD [address] [place] [address] Scheduled Orders Name Type Priority Associated Diagnoses [...] D LEVEL ONCE IN A LIFETIME-USE SMARTSET# [id number] Completed 04/11/2024, 11/29/2023, 08/22/2023, Additional history exists [...] obstruction documented in this encounter Care Teams Hash Slinger Relationship Specialty Start Date End Date Sadia Almonte DO [address] [place] [address] PCP - General Family Medicine 11/23/16 documented as of this encounter
--- OUTSIDE RECORDS SUMMARY | 2024-04-16 23:59 | External Medical Summary | Summary of Care ---
Author Name Unknown Organization [facility] Address [address] [place] [address] Phone [phone] Care Team Providers Care Senior Technical Trainer Name Role Phone Suzy Sadia Garza DO Primary Care Provider Reason for Visit * Reason Comments Outpatient Testing Encounter Details Date Type Department Care Team (Late st Contact Info) Description 04/15/2024 9:00 AM EDT Laboratory [facility] [address] [place] [phone] [place], Lab [address]enery [address] [facility] [address] Anemia, unspecified type; Abnormal LFTs; Celiac disease [...] inj 60 mgIndications:Senile osteoporosis 60 mg SC [id number] 08/29/2023 08/23/2024 Active documented as of this encounter (statuses as of 04/15/2024) Active Problems Problem Noted Date Diagnosed Date Fracture of left wrist with routine healing 01/17 History of open reduction an d internal fixation (ORIF) procedure 02/14/2024 Age-related osteoporosis with current pathologic al fracture 02/14/2024 Hyperlipidemia 08/16/2023 [place] of toe 08/01/2022 Primary osteoarthritis of fi [...] No 10/26/2023 Does the household have a [facility] source of income? (Household - for ages [...] 04/17/2024 9:40 AM EDT Office Visit Podiatry [facility] [address] [place] [address] Danielle Haley DPM [address] [place] [address] 08/21/2024 7:40 AM EST Office Visit Family Practice [facility] [place] [place] [address] [place] [address] Sadia Almonte, [address] [place] [address] 09/09/2024 2:00 PM EDT Office Visit Rheumatology [facility] [place] [address] [place] [address] Raul Mckeon CRNP [address] [employer] [place] [address] 11/05/2024 8:20 AM EDT Telemedicine Endocrinology [place] [address] [place] [address] Monae Parekh MD [address] [place] [address] Scheduled Procedures Name Priority Associated Diagnoses Date/Ti me COLONOSCOPY FLEXIBLE PROXIMAL DIAGNOSTIC Recall History of colon polyps Health Maintenance Due Date Last Done Comments Adult Wellness Visit 2009 Influenza Vaccine (FLU shot) (#1) 2024 04/17/2023, 04/03/2022, 03/20/2021, Additional history exists COVID-19 Vaccine (2023- season) 2024 03/07/2022, 10/04/2021, 04/22/2021, Additional history exists Postponed from 02/17/2024 (Unavailable) GFR 04/11/2025 04/11/2024, 11/16, 02/12/2023, Additional history exists Depression Screening 04/15/2025 04/15/2024, 08/01/19 23 Albumin/Creatinine Ratio 08/03/2025 08/03/2022 DXA Scan 01/20/2026 01/21/2024, 08/10/2023, 01/11/2022, Additional history exists DTap/Tdap Vaccines (3 - Td or Tdap) 02/13/2034 02/14/2024, 07/05/2013 Pneumococcal Vaccine: 65+ Years Completed 10/26/2016, 05/27/2015 Zoster Vaccines Completed 02/02/2020, 11/16, 12/26/2016 RETIRED - COLONOSCOPY-EVERY 5 YRS AGES 18-100 Discontinued 03/19/2020, 03/19/2020, 03/09/2015, Additional history exists VITAMIN D LEVEL ONCE IN A LIFETIME-USE SMARTSET# [id number] Completed 04/11/2024, 11/29/2023, 08/22/2023, Additional history exists [...] Procedure Name Priority Date/Time Associated Diagnosis Comments FECAL OCCULT BLOOD, EIA Routine 04/15/2024 8:07 AM EDT Anemia, unspecified type Abnormal LFTs Celiac disease documented in this encounter Results * FECAL OCCULT BLOOD, EIA (04/15/2024 8:07 AM EDT) iFOBT Negative Negative 04/15/2024 8:17 AM EDT [facility] 56-02 Stool Stool specimen / Unknown Non-blood Collection / Unknown 04/15/2024 8:07 AM EDT 04/15/2024 8:07 AM EDT Vicenta Westbrook MD LAB FLUID AND STOOL ORDERABLES [facility] 56-02 200 [facility] [place] [address] documented in this encounter Visit Diagnoses Diagnosis Anemia, unspecified type Abnormal LFTs Other abnormal blood chemistry Celiac disease documented in this encounter Care Teams Senior Technical Trainer Relationship Specialty Start Date End Date Sadia Almonte DO 200 [facility] [place] [address] PCP - General Family Medicine 11/23/16 documented as of this encounter
--- OUTSIDE RECORDS SUMMARY | 2024-04-17 | External Medical Summary | Summary of Care ---
Author Name Unknown Organization [facility] Address [address] [place] [address] Phone [phone] Care Team Providers Care Security Assurance Analyst Name Role Phone Suzy Sadia Garza DO Primary Care Provider Reason for Visit * Reason Comments Outpatient Testing Encounter Details Date Type Department Care Team (Late st Contact Info) Description 04/11/2024 11:20 AM EDT Laboratory Laboratory [facility] [address] [place] [phone] [place], Lab Scenery [address] [facility] [address] Screening for lipoid disorders; HTN, goal below 140/90; Senile osteoporosis; Generalized weakness; Irregular heart rate; Abdominal pain, right upper quadrant; Low grade fever; Loose stools Allergies Active Allergy Reactions Criticality Noted Date Comments Amoxicillin Rash 12/03/2014 Penicillins Rash 12/03/2014 Carbamazepine Rash 12/03/2014 documented as of this encounter (statuses as of 04/11/2024) Medications Medication Sig Dispensed Refills Start Date [...] inj 60 mgIndications:Senile osteoporosis 60 mg SC [id number] 08/29/2023 08/23/2024 Active documented as of this encounter (statuses as of 04/11/2024) Active Problems Problem Noted Date Diagnosed Date Fracture of left wrist with routine healing 01/17 History of open reduction an d internal fixation (ORIF) procedure 02/14/2024 Age-related osteoporosis with current pathologic al fracture 02/14/2024 Hyperlipidemia 08/16/2023 [place] of toe 08/01/2022 Primary osteoarthritis of fi rst carpometacarpal joint of left hand 08/01/2022 HTN, goal below 140/90 01/26/2022 Postprocedural hypoparathyroidism 08/08/2019 Celiac disease 07/25/2019 H/O parathyroidectomy Age-related osteoporosis wit hout current pathological fracture documented as of this encounter (statuses as of 04/11/2024) Resolved Problems Problem Noted Date Diagnosed Date Resolved Date Trigeminal neuralgia 05/06/2018 020 Colon polyp 12/03/2014 09/04/2019 Callous ulcer 12/03/2014 05/06/2018 Hammertoe 12/03/2014 09/04/2019 Bunion of left foot 12/03/2014 12/12/19 19 documented as of this encounter (statuses as of 04/11/2024) Immunizations Name Administration Dates Next Due COVID-19 [...] Description 04/14/2024 11:15 AM EDT Imaging Radiology [facility] [address] [facility] [address] [place] [address] 04/17/2024 9:40 AM EDT Office Visit Podiatry [facility] [address] [place] [address] Danielle Haley DPM [address] [place] [address] 04/21/2024 1:00 PM EST Office Visit General Internal Medicine [facility] [address] [place] [address] Eli Logan PA-C [address] [place] [address] 08/21/2024 7:40 AM EST Office Visit Family Practice [facility] [address] [place] [address] Sadia Almonte DO 200 [facility] [place] [address] 09/09/2024 2:00 PM EDT Office Visit Rheumatology [facility] [address] [place] [address] Raul Mckeon CRNP [address] [employer] [place] [address] 11/05/2024 8:20 AM EDT Telemedicine Endocrinology [address] [place] [address] Monae Parekh MD [address] [place] [address] Pending Results Name Type Priority Associated Diagnoses Date /Time LIPID PANEL WITH DIRECT LDL IF TG IS HIGH Lab Routine Screening for lipoid disorders 04/11/2024 11:22 AM EDT 25-HYDROXY VITAMIN D Lab Routine Senile osteoporosis 04/11/2024 11:22 AM EDT PTH Lab Routine Senile osteoporosis 04/11/2024 11:22 AM EDT COMPREHENSIVE METABOLIC PANEL Lab STAT Generalized weakness Irregular heart rate Abdominal pain, right upper quadrant Low grade fever Loose stools 04/11/2024 11:22 AM EDT Scheduled Procedures Name Priority Associated Diagnoses Date/Ti me COLONOSCOPY FLEXIBLE PROXIMAL DIAGNOSTIC Recall History of colon polyps Health Maintenance Due Date Last Done Comments Adult Wellness Visit 2009 Depression Screening 08/01/2023 08/01/2022 COVID-19 Vaccine ( season) 2024 03/07/2022, 10/04/2021, 04/22/2021, Additional history exists Influenza Vaccine (FLU shot) (#1) 2024 04/17/2023, 04/03/2022, 03/20/2021, Additional history exists GFR 11/28/2024 11/29/2023, 08/2 01/2023, 08/03/2022, Additional history exists Albumin/Creatinine Ratio 08/03/2025 08/03/2022 DXA Scan 01/20/2026 01/21/2024, 08/0 10/2023, 01/11/2022, Additional history exists DTap/Tdap Vaccines (3 - Td or Tdap) 02/13/2034 02/14/2024, 07/05/2013 Pneumococcal Vaccine: 65+ Years Completed 10/26/2016, 05/27/2015 Zoster Vaccines Completed 02/02/2020, 11/16, 12/26/2016 RETIRED - COLONOSCOPY-EVERY 5 YRS AGES 18-100 Discontinued 03/19/2020, 03/19/2020, 03/09/2015, Additional history exists VITAMIN D LEVEL ONCE IN A LIFETIME-USE SMARTSET# [id number] Completed 11/29/2023, 08/22/2023, 08/03/2023, Additional history exists HPV (Gardasil) Vaccine Aged [...] Procedure Name Priority Date/Time Associated Diagnosis Comments DIFFERENTIAL, AUTOMATED STAT 04/11/2024 11:22 AM EDT Generalized weakness Irregular heart rate Abdominal pain, right upper quadrant Low grade fever Loose stools CBC STAT 04/11/2024 11:22 AM EDT Generalized weakness Irregular heart rate Abdominal pain, right upper quadrant Low grade fever Loose stools CBC STAT 04/11/2024 11:22 AM EDT Generalized weakness Irregular heart rate Abdominal pain, right upper quadrant Low grade fever Loose stools documented in this encounter Results * (ABNORMAL) DIFFERENTIAL, AUTOMATED (04/11/2024 11:22 AM EDT) WBC 10.44 4.00 - 10.80 K/uL 04/11/2024 11:32 AM EDT [facility] 56- Neutrophils % 74.4 40.0 - 75.0 % 04/11/2024 11:32 AM EDT [facility] 56- Lymphocytes % 16.0(L) 18.0 - 42.0 % 04/11/2024 11:32 AM EDT [facility] 56- Monocytes % 8.5 1.0 - 11.0 % 04/11/2024 11:32 AM EDT [facility] 56- Eosinophils % 0.7 0.0 - 6.0 % 04/11/2024 11:32 AM EDT [facility] 56 Basophils % 0.4 0.0 - 2.0 % 04/11/2024 11:32 AM EDT [facility] 56 Absolute Neutrophils 7.77(H) 1.80 - 7.70 K/uL 04/11/2024 11:32 AM EDT [facility] 56 Absolute Lymphocytes 1.67 1.00 - 4.80 K/ul 04/11/2024 11:32 AM EDT [facility] 56- Absolute Monocytes 0.89 0.00 - 1.10 K/uL 04/11/2024 11:32 AM EDT [facility] 56- Absolute Eosinophils 0.07 0.00 - 0.70 K/uL 04/11/2024 11:32 AM EDT [facility] 56- Absolute Basophils 0.04 0.00 - 0.20 K/uL 04/11/2024 11:32 AM EDT [facility] 56 Blood Venous blood specimen / Unknown Venipuncture / Unknown 04/11/2024 11:22 AM EDT 04/11/2024 11:22 AM EDT Vicenta Westbrook MD LAB BLOOD ORDERABLES [facility] [address]- [address] [place] [address] * (ABNORMAL) CBC (04/11/2024 11:22 AM EDT) WBC 10.44 4.00 - 10.80 K/uL 04/11/2024 11:32 AM EDT [facility] RBC 3.97 3.85 - 5.15 M/uL 04/11/2024 11:32 AM EDT [place] [address] HGB 10.9(L) 12.0 - 15.3 g/dL 04/11/2024 11:32 AM EDT [facility] HCT 36.0 36.0 - 45.2 % 04/11/2024 11:32 AM EDT [place] [address] MCV 90.7 81.5 - 97.5 fL 04/11/2024 11:32 AM EDT [place] [address] MCH 27.5 27.0 - 34.0 pg 04/11/2024 11:32 AM EDT [address] MCHC 30.3 32.0 - 36.0 g/dL 04/11/2024 11:32 AM EDT [place] [address] RDW 14.3 11.5 - 15.5 % 04/11/2024 11:32 AM EDT [place] [address] PLT 584(H) 140 - 400 K/uL 04/11/2024 11:32 AM EDT [facility] MPV 8.6 6.6 - 11.1 fL 04/11/2024 11:32 AM T [facility] 56 Blood Venous blood specimen / Unknown Venipuncture / Unknown 04/11/2024 11:22 AM EDT 04/11/2024 11:22 AM EDT Vicenta Westbrook MD LAB BLOOD ORDERABLES [facility] [address] [place] [address] documented in this encounter Visit Diagnoses Diagnosis Screening for lipoid disorders HTN, goal below 140/90 Unspecified essential hypertension Senile osteoporosis Generalized weakness Other malaise and fatigue Irregular heart rate Cardiac dysrhythmia, unspecified Abdominal pain, right upper quadrant Low grade fever Fever, unspecified Loose stools Abnormal feces documented in this encounter Care Teams Security Assurance Analyst Relationship Specialty Start Date End Date Sadia Almonte DO [address] [place] [address] PCP - General Family Medicine 11/23/16 documented as of this encounter
--- OUTSIDE RECORDS SUMMARY | 2024-04-17 | External Medical Summary | Summary of Care ---
Author Name Unknown Organization [facility] Address [address] [place] [address] Phone [phone] Care Team Providers Care Judo Teacher Name Role Phone Sadia Almonte Primary Care Provider Encounter Details Date Type Department Care Team (Late st Contact Info) Description 04/08/2024 Patient Reported Data Patient Survey Ortho [facility]D Allergies Active Allergy Reactions Criticality Noted Date Comments Amoxicillin Rash 12/03/2014 Penicillins Rash 12/03/2014 Carbamazepine Rash 12/03/2014 documented as of this encounter (statuses as of 04/08/2024) Medications Medication Sig Dispensed Refills Start Date [...] inj 60 mgIndications:Senile osteoporosis 60 mg SC [id number] 08/29/2023 08/23/2024 Active documented as of this encounter (statuses as of 04/08/2024) Active Problems Problem Noted Date Diagnosed Date Fracture of left wrist with routine healing 01/17 History of open reduction an d internal fixation (ORIF) procedure 02/14/2024 Age-related osteoporosis with current pathologic al fracture 02/14/2024 Hyperlipidemia 08/16/2023 [place] of toe 08/01/2022 Primary osteoarthritis of fi rst carpometacarpal joint of left hand 08/01/2022 HTN, goal below 140/90 01/26/2022 Postprocedural hypoparathyroidism 08/08/2019 Celiac disease 07/25/2019 H/O parathyroidectomy Age-related osteoporosis wit hout current pathological fracture documented as of this encounter (statuses as of 04/08/2024) Resolved Problems Problem Noted Date Diagnosed Date Resolved Date Trigeminal neuralgia 05/06/2018 020 Colon polyp 12/03/2014 09/04/2019 Callous ulcer 12/03/2014 05/06/2018 [place] 12/03/2014 09/04/2019 Bunion of left foot 12/03/2014 12/12/19 19 documented as of this encounter (statuses as of 04/08/2024) Immunizations Name Administration Dates Next Due COVID-19 mRNA, LNP-s, No Pre serve, 2-Dose Series (Moderna) 04/22/2021,08/15/2020,07/12/2020 COVID-19, mRNA, LNP-s, PF, B ooster, 100mcg/0.5mg (Moderna) 10/04/2021 Covid-19, Mrna, Lnp-s, Pf, B ivalent, 30 Mcg, IM, 12 yrs and above (Cryptmint) 03/07/2022 Pneumococcal Conjugate Vacc, 13 Valent (Prevnar) [...] Care Team (Late st Contact Info) Description 04/09/2024 10:40 AM EDT Office Visit Family Practice [facility] [address] [place] [address] [address] Twila Donald PA-C [address] [place] [address] [address] 04/10/2024 11:30 AM EDT Office Visit Orthopaedics [facility] [address] [place] [address] Tyler Negrete MD [address] [place] [phone] 08/21/2024 7:40 AM EST Office Visit Family [facility] [address] [place] [address] [address] Sadia Almonte DO [address] [place] [address] 09/09/2024 2:00 PM EDT Office Visit Rheumatology [place] [address] [facility] [place] [address] Raul Mckeon CRNP [address] [facility] [place] [address] 11/05/2024 8:20 AM EDT Telemedicine Endocrinology [address] [place], [place] [address] Monae Parekh MD [address] [facility] [place] [address] Scheduled Procedures Name Priority Associated Diagnoses Date/Ti me COLONOSCOPY FLEXIBLE PROXIMAL DIAGNOSTIC Recall History of colon polyps Health Maintenance Due Date Last Done Comments Adult Wellness Visit 2009 Depression Screening 08/01/2023 08/01/2022 COVID-19 Vaccine ( season) 2024 03/07/2022, 10/04/2021, 04/22/2021, Additional history exists Influenza Vaccine (FLU shot) (#1) 2024 04/17/2023, 04/03/2022, 03/20/2021, Additional history exists GFR 11/28/2024 11/29/2023, 01/17, 08/03/2022, Additional history exists Albumin/Creatinine Ratio 08/03/2025 08/03/2022 DXA Scan 01/20/2026 01/21/2024, 08/0 10/2023, 01/11/2022, Additional history exists DTap/Tdap Vaccines (3 - Td or Tdap) 02/13/2034 02/14/2024, 07/05/2013 Pneumococcal Vaccine: 65+ Years Completed 10/26/2016, 05/27/2015 Zoster Vaccines Completed 02/02/2020, 11/16, 12/26/2016 RETIRED - COLONOSCOPY-EVERY 5 YRS AGES 18-100 Discontinued 03/19/2020, 03/19/2020, 03/09/2015, Additional history exists VITAMIN D LEVEL ONCE IN A LIFETIME-USE SMARTSET# [id number] Completed 11/29/2023, 08/22/2023, 08/03/2023, Additional history exists [...] filedocumented as of this encounter Care Teams Judo Teacher Relationship Specialty Start Date End Date Sadia Almonte DO [address] [place] [address] PCP - General Family Medicine 11/23/16 documented as of this encounter
--- OUTSIDE RECORDS SUMMARY | 2024-04-17 | External Medical Summary | Summary of Care ---
Author Name Unknown Organization [facility] Address [address] [place] [address] Phone [phone] Care Team Providers Care Chief Crna Name Role Phone Suzy Mccullough Kayla LARA Primary Care Provider Reason for Referral * (Within 24 hrs (call dept; emergent)) - Authorized Specialty Diagnoses / Procedures Referred By Contac t Referred To Contact Radiology Diagnoses Generalized weakness Abdominal pain, right upper quadrant Low grade fever Procedures US ABDOMEN LIMITED Vicenta Westbrook MD [address] [place] [address] Referral ID Status Reason Start Date Expiration Date V isits Requested Visits Authorized [id number] Authorized 04/11/2024 999 999 Reason for Visit * Reason Comments Weakness, Generalized Encounter Details Date Type Department Care Team (Late st Contact Info) Description 04/11/2024 10:00 AM EDT Office Visit General Internal Medicine [facility] [address] [place] [address] Vicenta Westbrook MD [address] [place] [address] Generalized weakness*; Irregular heart rate; Abdominal pain, right upper [...] inj 60 mgIndications:Senile osteoporosis 60 mg SC [id number] 08/29/2023 08/23/2024 Active documented as of this encounter (statuses as of 04/11/2024) Active Problems Problem Noted Date Diagnosed Date Fracture of left wrist with routine healing 01/17 History of open reduction an d internal fixation (ORIF) procedure 02/14/2024 Age-related osteoporosis with current pathologic al fracture 02/14/2024 Hyperlipidemia 08/16/2023 [place] of toe 08/01/2022 Primary osteoarthritis of fi [...] Sign Reading Time Taken Comments Blood Pressure 94/68 04/11/2024 10:37 AM EDT Pulse 65 04/11/2024 10:37 AM EDT Temperature 37.5 C (99.5 F) 04/11/2024 10:37 AM E DT Respiratory Rate - - Oxygen Saturation 100% 04/11/2024 10:37 AM EDT Inhaled Oxygen Concentration - - Weight 54.2 kg (119 lb 8 oz) 04/11/2024 10:37 AM EDT Height 165.4 cm (5' 5.12") 04/11/2024 10:37 AM E DT Body Mass Index 19.81 04/11/2024 10:37 AM EDT documented in this encounter Progress Notes * Vicenta Westbrook MD - 04/11/2024 10:40 AM EDT SUBJECTIVE: Joanie Joyner is a 79 year old female. Chief Complaint Patient presents with Weakness, Generalized Nursing Notes: Marilynn Jefferson CMA 04/11/24 1040 Signed Patient presents today due to fatigue and weakness. She states last week she suddenly became very exhausted and could no longer continue her walk because she became very weak. Upon checking her bloodpressure, it was very low. She states she has continued to have the fatigue and dizziness. HPI: Patient presents today for acute appointment with symptoms of fatigue and generalized weaknessfor 1-1/2 weeks. Denies any fever or chills. No URI symptoms. No dizziness or palpitations. States blood pressure has also been low. No nausea vomiting or diarrhea but states had some loose stools once or twice a day Low-grade fever noted History of hypertension on metoprolol for many years. Wt Readings from Last 4 Encounters: 04/11/24 54.2 kg (119 lb 8 oz) 02/14/24 53.5 kg (118 lb) 08/29/23 54.4 kg (120 lb) 08/16/23 56.2 kg (123 lb 12.8 oz) BP Readings from Last 4 Encounters: 04/11/24 94/68 02/14/24 126/80 08/16/23 130/78 02/06/23 136/82 Patient Active Problem List Diagnosis H/O parathyroidectomy Age-related osteoporosis without current pathological fracture Celiac disease Postprocedural hypoparathyroidism (HCC) HTN, goal below 140/90 [place] of toe Primary osteoarthritis of first carpometacarpal [...] Penicillins Rash Tegretol [Carbamazepine] Rash OBJECTIVE: BP 94/68 | Pulse 65 | Temp 37.5 C (99.5 F) | Ht 1.654 m (5' 5.12") | Wt 54.2 kg (119 lb 8 oz) |SpO2 100% | BMI 19.81 kg/m | BSA 1.58 m PHYSICAL EXAM: General: alert, healthy, no distress, well developed MM-tongue coated,s l dry Heart:Regular rhythm, freq ectopics,No murmurs. Lungs: lungs clear to auscultation Extremities: no edema Abdomen: Soft, mild tenderness right upper quadrant,normal bowel sounds, no masses or organomegaly Feels warm to touch ASSESSMENT/PLAN: Generalized weakness (Primary) - EKG; Future; Expected date: 04/11/2024 - EKG - CBC WITH WBC DIFFERENTIAL; Future; Expected date: 04/11/2024 - COMPREHENSIVE METABOLIC PANEL; Future; Expected date: 04/11/2024 - US ABDOMEN LIMITED; Future; Expected date: 04/11/2024 Irregular heart rate - EKG; Future; Expected date: 04/11/2024 - EKG - CBC WITH WBC DIFFERENTIAL; Future; Expected date: 04/11/2024 - COMPREHENSIVE METABOLIC PANEL; Future; Expected date: 04/11/2024 Abdominal pain, right upper quadrant - CBC WITH WBC DIFFERENTIAL; Future; Expected date: 04/11/2024 - COMPREHENSIVE METABOLIC PANEL; Future; Expected date: 04/11/2024 - US ABDOMEN LIMITED; Future; Expected date: 04/11/2024 Low grade fever - CBC WITH WBC DIFFERENTIAL; Future; Expected date: 04/11/2024 - COMPREHENSIVE METABOLIC PANEL; Future; Expected date: 04/11/2024 - US ABDOMEN LIMITED; Future; Expected date: 04/11/2024 Loose stools - CBC WITH WBC DIFFERENTIAL; Future; Expected date: 04/11/2024 - COMPREHENSIVE METABOLIC PANEL; Future; Expected date: 04/11/2024 EKG-NSR at 84 beats per minute, PACs Advised to hold metoprolol till follow-up appointment. , increase intake of fluids Labs today, schedule ultrasound If any worsening symptoms advised to go to the ER for evaluation Follow Up: Return in about 3 days (around 04/14/2024), or if symptoms worsen or fail to improve, for Labs Today. | For: Labs Today | Check-out note: F/u Any provider (This note was completed using the dictation [...] documented in this encounter Nursing Notes * Marilynn Jefferson CMA - 04/11/2024 10:35 AM EDT Patient presents today due to fatigue and weakness. She states last week she suddenly became very exhausted and could no longer continue her walk because she became very weak. Upon checking her bloodpressure, it was very low. She states she has continued to have the fatigue and dizziness. documented in this encounter Plan of Treatment Upcoming Encounters Date Type Department Care Team (Late st Contact Info) Description 04/14/2024 11:15 AM EDT Imaging Radiology [facility] [address] [place] [address] 04/17/2024 9:40 AM EDT Office Visit Podiatry [address] [place] [address] Danielle Haley DPM [address] [place] [address] 04/21/2024 1:00 PM EST Office Visit General Internal Medicine [facility] [address] [place], [place] [address] Eli Logan PA-C [address] [facility] [place] [address] 08/21/2024 7:40 AM EST Office Visit Family Practice [facility] [address] [place] [address] Sadia Almonte DO [address] [facility] [place] [address] 09/09/2024 2:00 PM EDT Office Visit Rheumatology [facility] [address] [place], [place] [address] Raul Mckeon CRNP [address] [place], [place] [address] 11/05/2024 8:20 AM EDT Telemedicine Endocrinology [address] [place] [address] Monae Parekh MD [address] [place] [address] Pending Results Name Type Priority Associated Diagnoses Date /Time CBC WITH WBC DIFFERENTIAL Lab STAT Generalized weakness Irregular heart rate Abdominal pain, right upper quadrant Low grade fever Loose stools 04/11/2024 11:22 AM EDT COMPREHENSIVE METABOLIC PANEL Lab STAT Generalized weakness Irregular heart rate Abdominal pain, right upper quadrant Low grade fever Loose stools 04/11/2024 11:22 AM EDT Scheduled Orders Name Type Priority Associated Diagnoses Orde r Schedule EKG EKG Routine Generalized weakness Irregular heart rate Expected: 04/11/2024 (Approximate), Expires: 05/12/2025 CBC WITH WBC DIFFERENTIAL Lab STAT Generalized weakness Irregular heart rate Abdominal pain, right upper quadrant Low grade fever Loose stools Expected: 04/11/2024 (Approximate), Expires: 04/11/2025 COMPREHENSIVE METABOLIC PANEL Lab STAT Generalized weakness Irregular heart rate Abdominal pain, right upper quadrant Low grade fever Loose stools Expected: 04/11/2024 (Approximate), Expires: 04/11/2025 US ABDOMEN LIMITED Medical Imaging STAT Generalized weakness Abdominal pain, right upper quadrant Low grade fever Expected: 04/11/2024, Expires: 05/12/2025 Scheduled Procedures Name Priority Associated Diagnoses Date/Ti [...] D LEVEL ONCE IN A LIFETIME-USE SMARTSET# [id number] Completed 11/29/2023, 08/22/2023, 08/03/2023, Additional history exists [...] as of this encounter Visit Diagnoses Diagnosis Generalized weakness- Primary Other malaise and fatigue Irregular heart rate Cardiac dysrhythmia, unspecified Abdominal pain, right upper quadrant Low grade fever Fever, unspecified Loose stools Abnormal feces documented in this encounter Care Teams Chief Crna Relationship Specialty Start Date End Date Sadia Almonte DO [address] [place] [address] PCP - General Family Medicine 11/23/16 documented as of this encounter
--- OUTSIDE RECORDS SUMMARY | 2024-04-17 | External Medical Summary | Summary of Care ---
Author Name Unknown Organization [facility] Address [address] [place] [address] Phone [phone] Care Team Providers Care Bush [employer] Vine Farmer [employer]ps Name Role Phone Sadia Almonte Primary Care [...] inj 60 mgIndications:Senile osteoporosis 60 mg SC [id number] 08/29/2023 08/23/2024 Active documented as of this encounter (statuses as of 04/08/2024) Active Problems Problem Noted Date Diagnosed Date Fracture of left wrist with routine healing 01/17 History of open reduction an d internal fixation (ORIF) procedure 02/14/2024 Age-related osteoporosis with current pathologic al fracture 02/14/2024 Hyperlipidemia 08/16/2023 [place] of toe 08/01/2022 Primary osteoarthritis of fi [...] 30 Mcg, IM, 12 yrs and above ([email or web address]) 03/07/2022 Pneumococcal Conjugate Vacc, 13 Valent (Prevnar) [...] 10:40 AM EDT Office Visit Family Practice [facility] [address] [place] [address] Twila Donald PA-C [address] [place] [address] [place] [address] 04/10/2024 11:30 AM EDT Office Visit Orthopaedics [facility] [address] [place] [address] Tyler Negrete MD [address] [place] [phone] 08/21/2024 7:40 AM EST Office Visit Family [facility] [address] [place] [address] [address] Sadia Almonte DO [address] [place] [address] [address] [address] 09/09/2024 2:00 PM EDT Office Visit Rheumatology [place] [address] [facility] [place] [address] Raul Mckeon CRNP [address] [facility] [place] [address] 11/05/2024 8:20 AM EDT Telemedicine Endocrinology [address] [place], [place] [address] Monae Parekh MD [address] [facility] [place] [address] Scheduled Procedures Name Priority [...] D LEVEL ONCE IN A LIFETIME-USE SMARTSET# [id number] Completed 11/29/2023, 08/22/2023, 08/03/2023, Additional history exists [...] filedocumented as of this encounter Care Teams [employer] Relationship Specialty Start Date End Date Sadia Almonte DO [address] [place] [address] PCP - General Family Medicine 11/23/16 documented as of this encounter
--- OUTSIDE RECORDS SUMMARY | 2024-04-17 | External Medical Summary ---
Author Name Unknown Address Unknown Organization [id number]:LABORATORY [facility] [place] - [address] [place] [address] Laboratory Report Ordering Provider Test Date Status MANUELA CENTENO 04/11/2024 11:22:05 Final Observation Date Value Abnormality Reference (Units ) Status Parathyrin.intact [Mass/volume] in Serum or Plasma 04/11/2024 11:22:05 67 Above high normal 15-65 (pg/mL) Final Performing Location [facility]ORY [facility] - [address] [place] [address]
--- OUTSIDE RECORDS SUMMARY | 2024-04-17 | External Medical Summary ---
Author Name Unknown Address Unknown Organization [id number]:[facility] [place] - [address] [facility] [address] [place] [address] Laboratory Report Ordering Provider Test Date Status VEDASISSY 04/14/2024 11:46:00 Final Observation Date Value Abnormality Reference (Units ) Status Albumin 04/14/2024 11:46:00 3.5 Below low normal 3.8-5.0 (g/dL) Final AST (Aspartate aminotransferase) 04/14/2024 11:46:00 66 Above high normal 10-35 (U/L) Final Alk Phos 04/14/2024 11:46:00 155 Above high normal 35-130 (U/L) Final ALT (Alanine aminotransferase) 04/14/2024 11:46:00 79 Above high normal 10-35 (U/L) Final Bilirubin, Total 04/14/2024 11:46:00 0.5 <=1.2 (mg/dL) Final Bilirubin, Direct 04/14/2024 11:46:00 <0.2 0.0-0.3 (mg/dL) Final Protein 04/14/2024 11:46:00 7.9 6.0-8.3 (g/dL) Final Performing Location [facility] 0 - [address] [place] [address]
--- OUTSIDE RECORDS SUMMARY | 2024-04-17 | External Medical Summary ---
Author Name Unknown Address Unknown Organization [id number]:LABORATORY [facility] - [address] [place] [address] Laboratory Report Ordering Provider Test Date Status MANUELA CENTENO 04/11/2024 11:22:05 Final Deficient: <20 ng/mL
Ins ufficient: 20-29 ng/mL
Recommended/Optimum:30-50 ng/mL

Vitamin D intoxication is rare. If suspicious of Vitamin D toxicity, evaluation of serum Calcium and PTH is recommended. Observation Date Value Abnormality Reference (Units ) Status 25-OH Vitamin D total 04/11/2024 11:22:05 44 >19 (ng/mL) Final Performing Location LABORATORY [facility] - [address] [place] [address]
--- OUTSIDE RECORDS SUMMARY | 2024-04-17 | External Medical Summary | Summary of Care ---
Author Name Unknown Organization [facility] Address [address] [place] [address] Phone [phone] Care Team Providers Care Television Announcer Name Role Phone Sadia Almonte Primary Care [...] inj 60 mgIndications:Senile osteoporosis 60 mg SC [id number] 08/29/2023 08/23/2024 Active documented as of this encounter (statuses as of 04/08/2024) Active Problems Problem Noted Date Diagnosed Date Fracture of left wrist with routine healing 01/17 History of open reduction an d internal fixation (ORIF) procedure 02/14/2024 Age-related osteoporosis with current pathologic al fracture 02/14/2024 Hyperlipidemia 08/16/2023 [place] of toe 08/01/2022 Primary osteoarthritis of fi [...] 30 Mcg, IM, 12 yrs and above ([employer]) 03/07/2022 Pneumococcal Conjugate Vacc, 13 Valent (Prevnar) [...] 10:40 AM EDT Office Visit Family Practice [facility] [address] [place] [address] [address] Twila Donald PA-C [address] [place] [address] [address] 04/10/2024 11:30 AM EDT Office Visit Orthopaedics [facility] [address] [place] [address] Tyler Negrete MD [address] [place] [phone] 08/21/2024 7:40 AM EST Office Visit Family [facility] [address] [place] [address] [address] Sadia Almonte DO [address] [place] [address] [address] 09/09/2024 2:00 PM EDT Office Visit Rheumatology [place] [phone] [facility] [place] [address] Raul Mckeon CRNP [address] [facility] [place] [address] 11/05/2024 8:20 AM EDT Telemedicine Endocrinology [address] [place], [place] [address] Monae Parekh MD [address] [facility] [place] [address] Scheduled Procedures Name Priority [...] D LEVEL ONCE IN A LIFETIME-USE SMARTSET# [id number] Completed 11/29/2023, 08/22/2023, 08/03/2023, Additional history exists [...] filedocumented as of this encounter Care Teams Television Announcer Relationship Specialty Start Date End Date Sadia Almonte DO [address] [place] [address] PCP - General Family Medicine 11/23/16 documented as of this encounter
--- OUTSIDE RECORDS SUMMARY | 2024-04-17 | External Medical Summary ---
Author Name Unknown Address Unknown Organization K09:[facility] [place] [address] Laboratory Report Ordering Provider Test Date Status SISSY MCCOLLUM 04/11/2024 11:22:05 Final Observation Date Value Abnormality Reference (Units ) Status WBC, Total 04/11/2024 11:22:05 10.44 4.00-10.8 0 (K/uL) Final RBC 04/11/2024 11:22:05 3.97 3.85-5.15 (M/uL) Final Hemoglobin 04/11/2024 11:22:05 10.9 Below low normal 12 .0-15.3 (g/dL) Final HCT 04/11/2024 11:22:05 36.0 36.0-45.2 (%) Final MCV 04/11/2024 11:22:05 90.7 81.5-97.5 (fL) Final MCH 04/11/2024 11:22:05 27.5 27.0-34.0 (pg) Final MCHC 04/11/2024 11:22:05 30.3 32.0-36.0 (g/dL) Final RDW 04/11/2024 11:22:05 14.3 11.5-15.5 (%) Final Platelets 04/11/2024 11:22:05 584 Above high normal 14 0-400 (K/uL) Final MPV 04/11/2024 11:22:05 8.6 6.6-11.1 ( fL) Final Performing Location [facility] [place] [address]
--- OUTSIDE RECORDS SUMMARY | 2024-04-17 | External Medical Summary ---
Author Name Unknown Address Unknown Organization K0G:LAB[facility]ATORY [facility] - [address] [place] [address] Laboratory Report Ordering Provider Test Date Status SISSY MCCOLLUM 04/14/2024 11:46:00 Final Observation Date Value Abnormality Reference (Units ) Status WBC, Total 04/14/2024 11:46:00 10.67 4.00-10.8 0 (K/uL) Final RBC 04/14/2024 11:46:00 3.86 3.85-5.15 (M/uL) Final Hemoglobin 04/14/2024 11:46:00 10.7 Below low normal 12 .0-15.3 (g/dL) Final Anemia reflex testing trigge rs on a HGB < 12.0 for Females and HGB < 13.0 for Males in accordance with the WHO Anemia Guidelines
Anemia reflex testing triggers on a HGB < 12.0 for Females and HGB < 13.0 for Males in accordance with the WHO Anemia Guidelines HCT 04/14/2024 11:46:00 34.3 Below low normal 36. 0-45.2 (%) Final MCV 04/14/2024 11:46:00 88.9 81.5-97.5 (fL) Final MCH 04/14/2024 11:46:00 27.7 27.0-34.0 (pg) Final MCHC 04/14/2024 11:46:00 31.2 32.0-36.0 (g/dL) Final RDW 04/14/2024 11:46:00 14.2 11.5-15.5 (%) Final Platelets 04/14/2024 11:46:00 586 Above high normal 14 0-400 (K/uL) Final MPV 04/14/2024 11:46:00 8.3 6.6-11.1 ( fL) Final Performing Location [facility] 0 - [address] [place] [address]
--- OUTSIDE RECORDS SUMMARY | 2024-04-17 | External Medical Summary | Summary of Care ---
Author Name Unknown Organization [facility] Address [address] [place] [address] Phone [phone] Care Team Providers Care Bedspread Inspector Name Role Phone Sadia Almonte Primary Care [...] inj 60 mgIndications:Senile osteoporosis 60 mg SC [id number] 08/29/2023 08/23/2024 Active documented as of this encounter (statuses as of 04/08/2024) Active Problems Problem Noted Date Diagnosed Date Fracture of left wrist with routine healing 01/17 History of open reduction an d internal fixation (ORIF) procedure 02/14/2024 Age-related osteoporosis with current pathologic al fracture 02/14/2024 Hyperlipidemia 08/16/2023 [place] of toe 08/01/2022 Primary osteoarthritis of fi [...] 30 Mcg, IM, 12 yrs and above ([employer]) 03/07/2022 Pneumococcal Conjugate Vacc, 13 Valent [...] 10:40 AM EDT Office Visit Family Practice [facility] [address] [place] [address] Twila Donald PA-C [address] [place] [address] [address] [address] 04/10/2024 11:30 AM EDT Office Visit Orthopaedics [facility] [address] [place] [address] Tyler Negrete MD [address] [place] [phone] 08/21/2024 7:40 AM EST Office Visit Family [facility] [address] [place] [address] Sadia Almonte DO [address] [place] [address] [address] 09/09/2024 2:00 PM EDT Office Visit Rheumatology [place] [id number] [facility] [place] [address] Raul Mckeon CRNP [address] [place] [address] 11/05/2024 8:20 AM EDT Telemedicine Endocrinology [address] [place], [place] [address] Monae Parekh MD [address] [facility] [place] [address] Scheduled Procedures Name [...] D LEVEL ONCE IN A LIFETIME-USE SMARTSET# [id number] Completed 11/29/2023, 08/22/2023, 08/03/2023, Additional history exists [...] filedocumented as of this encounter Care Teams Bedspread Inspector Relationship Specialty Start Date End Date Sadia Almonte DO [address] [place] [address] PCP - General Family Medicine 11/23/16 documented as of this encounter
--- OUTSIDE RECORDS SUMMARY | 2024-04-17 | External Medical Summary ---
Author Name Unknown Address Unknown Organization K09:[facility] [place] [address] Laboratory Report Ordering Provider Test Date Status SISSY MCCOLLUM 04/11/2024 11:22:05 Final Observation Date Value Abnormality Reference (Units ) Status SYNC LEUKOCYTES IN BLOOD BY AUTOMATED COUNT 04/11/2024 11:22:05 10.44 4.00-10.80 (K/uL) Final Segs 04/11/2024 11:22:05 74.4 40.0-75.0 (%) Final Lymphs % 04/11/2024 11:22:05 16.0 Below low normal 18.0-42.0 (%) Final Monos 04/11/2024 11:22:05 8.5 1.0-11.0 (%) Final Eosinophils 04/11/2024 11:22:05 0.7 0.0-6.0 (%) Final Basos 04/11/2024 11:22:05 0.4 0.0-2.0 (%) Final Absolute Segs 04/11/2024 11:22:05 7.77 Above high normal 1.80-7.70 (K/uL) Final Lymphs, absolute 04/11/2024 11:22:05 1.67 1.00-4.80 (K/ul) Final Monos, Abs 04/11/2024 11:22:05 0.89 0.00-1.10 (K/uL) Final Eos, Abs 04/11/2024 11:22:05 0.07 0.00-0.70 (K/uL) Final Basos, Abs 04/11/2024 11:22:05 0.04 0.00-0.20 (K/uL) Final Performing Location [facility] [place] [address]
--- OUTSIDE RECORDS SUMMARY | 2024-04-17 | External Medical Summary ---
Author Name Unknown Address Unknown Organization K01:[facility] - [address] [facility] [place] [address] Laboratory Report Ordering Provider Test Date Status NORMAN MISHRA 04/11/2024 11:22:05 Final Observation Date Value Abnormality Reference (Units ) Status Triglyceride 04/11/2024 11:22:05 71 <=174 ( mg/dL) Final Triglyceride Reference Range s (mg/dL):
<150 Acceptable
150-174 Borderline high
175-499 High
>=500 Very high Cholesterol 04/11/2024 11:22:05 153 <200 (mg /dL) Final Total Cholesterol Reference Ranges (mg/dL):
<200 Desirable
200-239 Borderline high
>=240 High HDL 04/11/2024 11:22:05 44 Below low normal >49 (mg/dL) Final HDL Cholesterol Reference Ra nges (mg/dL):
>=60 High (Desirable)
<50 Low (Undesirable) For Females
<40 Low (Undesirable) For Males NON-HDL CHOLESTEROL 04/11/2024 11:22:05 109 <=159 (mg/dL) Final Non-HDL Cholesterol Referenc e Range (mg/dL):
<100 Target level for high risk ASCVD patient
<130 Optimal for general population
130-159 Near optimal for general population
160-189 Borderline High
190-219 High
>=220 Very High LDL, (calculated) 04/11/2024 11:22:05 95 <= 129 (mg/dL) Final LDL Cholesterol Reference Ra nges (mg/dL):
<70 Target level for high risk ASCVD patient
<100 Optimal for general population
100-129 Near optimal for general population
130-159 Borderline high
160-189 High
>=190 Very high Performing Location LAB[facility] - [address] [place] [facility] [address]
--- OUTSIDE RECORDS SUMMARY | 2024-04-17 | External Medical Summary ---
Author Name Unknown Address Unknown Organization K01:LABORATORY [facility] [place] - [address] [place] [address] Laboratory Report Ordering Provider Test Date Status SISSY MCCOLLUM 04/14/2024 11:46:00 Final Observation Date Value Abnormality Reference (Units ) Status Folic Acid 04/14/2024 11:46:00 >20.0 >4.5 (ng/ mL) Final Performing Location LABORATORY [facility] [place] - [address] [place] [address]
--- OUTSIDE RECORDS SUMMARY | 2024-04-17 | External Medical Summary ---
Author Name Unknown Address Unknown Organization K09[facility] [place] [address] Laboratory Report Ordering Provider Test Date Status SISSY MCCOLLUM 04/11/2024 11:22:05 Final Observation Date Value Abnormality Reference (Units ) Status BUN 04/11/2024 11:22:05 7 6-20 (mg/dL) Final Creatinine 04/11/2024 11:22:05 0.6 0.5-1.0 (mg/dL) Final Glomerular filtration rate/1.73 sq M.predicted [Volume Rate/Area] in Serum, Plasma or Blood by Creatinine-based formula (CKD-EPI) 04/11/2024 11:22:05 >90 >=60 (mL/min) Final eGFR is calculated based on the CKD-EPI 2020 equation. Sodium 04/11/2024 11:22:05 137 135-146 (m mol/L) Final Potassium 04/11/2024 11:22:05 4.4 3.5-5.1 (m mol/L) Final Cl 04/11/2024 11:22:05 100 98-107 (mm ol/L) Final CO2 04/11/2024 11:22:05 23 22-32 (mmo l/L) Final Anion gap 04/11/2024 11:22:05 14 7-15 (mmol /L) Final Glucose 04/11/2024 11:22:05 99 70-120 (mg /dL) Final Albumin 04/11/2024 11:22:05 3.6 Below low normal 3.8 -5.0 (g/dL) Final AST (Aspartate aminotransferase) 04/11/2024 11:22:05 76 Above high normal 10-35 (U/L) Final Alk Phos 04/11/2024 11:22:05 145 Above high normal 35 -130 (U/L) Final Bilirubin, Total 04/11/2024 11:22:05 0.3 <=1 .2 (mg/dL) Final Calcium 04/11/2024 11:22:05 9.6 8.4-10.2 ( mg/dL) Final Protein 04/11/2024 11:22:05 7.4 6.0-8.3 (g /dL) Final ALT (Alanine aminotransferase) 04/11/2024 11:22:05 83 Above high normal 10-35 (U/L) Final Performing Location [facility] [address] [place] [address]
--- OUTSIDE RECORDS SUMMARY | 2024-04-17 | External Medical Summary | Summary of Care ---
Author Name Unknown Organization [facility] Address [address] [place] [address] Phone [phone] Care Team Providers Care Account Installation Specialist Name Role Phone Sadia Almonte Primary Care [...] inj 60 mgIndications:Senile osteoporosis 60 mg SC [id number] 08/29/2023 08/23/2024 Active documented as of this encounter (statuses as of 04/08/2024) Active Problems Problem Noted Date Diagnosed Date Fracture of left wrist with routine healing 01/17 History of open reduction an d internal fixation (ORIF) procedure 02/14/2024 Age-related osteoporosis with current pathologic al fracture 02/14/2024 Hyperlipidemia 08/16/2023 [place] of toe 08/01/2022 Primary osteoarthritis of fi [...] 30 Mcg, IM, 12 yrs and above ([employer]) 03/07/2022 Pneumococcal Conjugate Vacc, 13 Valent (Prevnar) [...] 10:40 AM EDT Office Visit Family Practice [facility] [address] [address] Twila Donald PA-C [address] [place] [address] [address] 04/10/2024 11:30 AM EDT Office Visit Orthopaedics [facility] [address] [place] [address] [address] Tyler Negrete MD [address] [place] [phone] 08/21/2024 7:40 AM EST Office Visit Family [facility] [address] [place] [address] [address] Sadia Almonte DO [address] [place] [address] [address] 09/09/2024 2:00 PM EDT Office Visit Rheumatology [place] [id number] [facility] [place] [address] Raul Mckeon CRNP [address] [facility] [place] [address] 11/05/2024 8:20 AM EDT Telemedicine Endocrinology [address] [place], [place] [address] Monae Parekh MD [address] [facility] [place] [address] Scheduled Procedures [...] D LEVEL ONCE IN A LIFETIME-USE SMARTSET# [id number] Completed 11/29/2023, 08/22/2023, 08/03/2023, Additional history exists [...] filedocumented as of this encounter Care Teams Account Installation Specialist Relationship Specialty Start Date End Date Sadia Almonte DO [address] [place] [address] PCP - General Family Medicine 11/23/16 documented as of this encounter
--- OUTSIDE RECORDS SUMMARY | 2024-04-17 00:01 | External Medical Summary | Summary of Care ---
Author Name Unknown Organization [facility] Address [address] [place] [address] Phone [phone] Care Team Providers Care Reliability Engineer Name Role Phone Sadia Almonte Primary Care [...] inj 60 mgIndications:Senile osteoporosis 60 mg SC [id number] 08/29/2023 08/23/2024 Active documented as of this encounter (statuses as of 04/08/2024) Active Problems Problem Noted Date Diagnosed Date Fracture of left wrist with routine healing 01/17 History of open reduction an d internal fixation (ORIF) procedure 02/14/2024 Age-related osteoporosis with current pathologic al fracture 02/14/2024 Hyperlipidemia 08/16/2023 [place] of toe 08/01/2022 Primary osteoarthritis of fi [...] 30 Mcg, IM, 12 yrs and above ([employer]) 03/07/2022 Pneumococcal Conjugate Vacc, 13 Valent (Prevnar) [...] 10:40 AM EDT Office Visit Family Practice [facility] [address] [place] [address] [address] Twila Donald PA-C [address] [place] [address] [address] 04/10/2024 11:30 AM EDT Office Visit Orthopaedics [facility] [address] [address] [address] Tyler Negrete MD [address] [place] [phone] 08/21/2024 7:40 AM EST Office Visit Family [facility] [address] [place] [address] [address] Sadia Almonte DO [address] [place] [address] [address] 09/09/2024 2:00 PM EDT Office Visit Rheumatology [place] [id number] [facility] [place] [address] Raul Mckeon CRNP [address] [facility] [place] [place] [address] 11/05/2024 8:20 AM EDT Telemedicine Endocrinology [address] [place] [address] Monae Parekh MD [address] [facility] [place] [address] Scheduled Procedures Name [...] D LEVEL ONCE IN A LIFETIME-USE SMARTSET# [id number] Completed 11/29/2023, 08/22/2023, 08/03/2023, Additional history exists [...] filedocumented as of this encounter Care Teams Reliability Engineer Relationship Specialty Start Date End Date Sadia Almonte DO [address] [place] [address] PCP - General Family Medicine 11/23/16 documented as of this encounter
--- OUTSIDE RECORDS SUMMARY | 2024-04-17 00:01 | External Medical Summary | Summary of Care ---
Author Name Unknown Organization [facility] Address [address] [place] [address] Phone [phone] Care Team Providers Care Chart Writer Name Role Phone Sadia Almonte Primary Care [...] inj 60 mgIndications:Senile osteoporosis 60 mg SC [id number] 08/29/2023 08/23/2024 Active documented as of this encounter (statuses as of 04/08/2024) Active Problems Problem Noted Date Diagnosed Date Fracture of left wrist with routine healing 01/17 History of open reduction an d internal fixation (ORIF) procedure 02/14/2024 Age-related osteoporosis with current pathologic al fracture 02/14/2024 Hyperlipidemia 08/16/2023 [place] of toe 08/01/2022 Primary osteoarthritis of fi [...] 30 Mcg, IM, 12 yrs and above ([employer]) 03/07/2022 Pneumococcal Conjugate Vacc, 13 Valent (Prevnar) [...] 10:40 AM EDT Office Visit Family Practice [facility] [address] [address] Twila Donald PA-C [address] [place] [address] [address] 04/10/2024 11:30 AM EDT Office Visit Orthopaedics [facility] [address] [address] Tyler Negrete MD [address] [place] [phone] 08/21/2024 7:40 AM EST Office Visit Family [facility] [address] [place] [address] Sadia Almonte DO [address] [address] 09/09/2024 2:00 PM EDT Office Visit Rheumatology [place] [id number] [place] [address] Raul Mckeon CRNP [address] [place] [address] 11/05/2024 8:20 AM EDT Telemedicine Endocrinology [address] [place] [address] Monae Parekh MD [address] [facility] [place] [address] Scheduled Procedures [...] D LEVEL ONCE IN A LIFETIME-USE SMARTSET# [id number] Completed 11/29/2023, 08/22/2023, 08/03/2023, Additional history exists [...] filedocumented as of this encounter Care Teams Chart Writer Relationship Specialty Start Date End Date Sadia Almonte DO [address] [place] [address] PCP - General Family Medicine 11/23/16 documented as of this encounter
--- OUTSIDE RECORDS SUMMARY | 2024-04-17 00:01 | External Medical Summary | Summary of Care ---
Author Name Unknown Organization [facility] Address [address] [place] [address] Phone [phone] Care Team Providers Care Container Finishing Inspector Name Role Phone Danica Almonte DO Primary Care Provider Reason for Visit * Reason Comments Medication Refill Encounter Details Date Type Department Care Team (Late st Contact Info) Description 03/08/[address] [facility] [address] [facility] [address] Danica [facility] [address] [place] [address] HTN, goal below 140/90 Allergies Active Allergy Reactions Criticality Noted Date Comments Amoxicillin Rash 12/03/2014 Penicillins Rash 12/03/2014 Carbamazepine Rash 12/03/2014 documented as of this encounter (statuses as of 03/09/2024) Medications Medication Sig Dispensed Refills Start Date End Date Status Multiple Vitamin (MULTIVITAMINS) Capsule Take 1 Capsule by mouth in the morning. Active Vitamin D, Cholecalciferol, 1000 units CAPS Take by mouth. Activ e B-12 1000 MCG Oral Tablet Take by mouth. Active Metoprolol Succinate ER 25 MG Oral Tablet Extended Release 24 Hour (toPROL XL)Indications:HT N, goal below 140/90 Take 1 Tablet by mouth in the morning. 90 Tablet 3 03/09/2024 Active Metoprolol Succinate ER 25 MG Oral Tablet Extended Release 24 Hour (toPROL XL)Indications:HT N, goal below 140/90 Take 1 Tablet by mouth in the morning. 90 Tablet 3 02/06/2023 03/08/2024 Discontinued (Refill) Hospital, Clinic, or Other Facility Administered Medication Ordered Dose Route Frequency Start Date End Date Status Denosumab (Prolia) subcut inj 60 mgIndications:Senile osteoporosis 60 mg SC [id number] 08/29/2023 08/23/2024 Active documented as of this encounter (statuses as of 03/09/2024) Active Problems Problem Noted Date Diagnosed Date Fracture of left wrist with routine healing 01/17 History of open reduction an d internal fixation (ORIF) procedure 02/14/2024 Age-related osteoporosis with current pathologic al fracture 02/14/2024 Hyperlipidemia 08/16/2023 [place] of toe 08/01/2022 Primary osteoarthritis of fi rst carpometacarpal joint of left hand 08/01/2022 HTN, goal below 140/90 01/26/2022 Postprocedural hypoparathyroidism 08/08/2019 Celiac disease 07/25/2019 H/O parathyroidectomy Age-related osteoporosis wit hout current pathological fracture documented as of this encounter (statuses as of 03/09/2024) Resolved Problems Problem Noted Date Diagnosed Date Resolved Date Trigeminal neuralgia 05/06/2018 020 Colon polyp 12/03/2014 09/04/2019 Callous ulcer 12/03/2014 05/06/2018 [place] 12/03/2014 09/04/2019 Bunion of left foot 12/03/2014 12/12/19 19 documented as of this encounter (statuses as of 03/09/2024) Immunizations Name Administration Dates Next Due COVID-19 mRNA, LNP-s, No Pre serve, 2-Dose Series (Moderna) 04/22/2021,08/15/2020,07/12/2020 COVID-19, mRNA, LNP-s, PF, B ooster, 100mcg/0.5mg (Moderna) 10/04/2021 Covid-19, Mrna, Lnp-s, Pf, B ivalent, 30 Mcg, IM, 12 yrs and above (Pfizer) 03/07/2022 Pneumococcal Conjugate Vacc, 13 Valent (Prevnar) 05/27/2015 Pneumococcal Polysaccharide PPV23 (Pneumovax) 10/26/2016 RSV Vac., Bivalent, Perfusio n F, Pf,0.5 Ml (Abrysvo) 2023 Seasonal Influenza, PF, 6 M & above, IM , (FluLaval or Fluzone) 03/22/2020,03/20/2018,03/14/2017 Seasonal Influenza, Quadriva lent Hd (Fluzone Hd) 04/17/2023,04/03/2022,03/18/2021 Seasonal Influenza, Quadriva lent, No Preserve, IM 03/20/2016,03/31/2015 Seasonal Influenza, Trivalen t, (IIV3), with Preserv, (Fluzone) 04/04/2014 Seasonal Influenza, Trivalen t, Adjuvanted, 65+ YRS, [...] Miscellaneous Notes * Telephone Encounter - Toshia Sanchez RP - 03/09/2024 3:30 PM EDTSigned Prescriptions: Disp Refills Metoprolol Succinate ER 25 MG Oral Tablet *90 Tab*3 Sig: Take 1 Tablet by mouth in the morning.Authorizing Provider: DANICA ALMONTE User: TOSHIA SANCHEZ documented in this encounter Plan of Treatment Upcoming Encounters Date Type Department Care Team (Late st Contact Info) Description 08/21/2024 7:40 AM EST Office Visit Family Practice [facility] [address] [facility] [place], [place] [address] Danica Almonte, [address] [facility] [place] [address] 09/09/2024 2:00 PM EDT Office Visit Rheumatology [facility] [address] [employer] [place] [address] Raul Mckeon CRNP [address] [facility] [place] [address] 11/05/2024 8:20 AM EDT Telemedicine Endocrinology [address] [place] [phone] Monae Parekh MD [address] [facility] [place] [address] Scheduled Procedures Name Priority Associated Diagnoses [...] Completed 10/26/2016, 05/27/2015 Zoster Vaccines Completed 02/02/2020, 12/03/2019 RETIRED - COLONOSCOPY-EVERY 5 YRS AGES 18-100 Discontinued 03/19/2020, 03/19/2020, 03/09/2015, Additional history exists VITAMIN D LEVEL ONCE IN A LIFETIME-USE SMARTSET# [id number] Completed 11/29/2023, 08/22/2023, 08/03/2023, Additional history exists [...] as of this encounter Visit Diagnoses Diagnosis HTN, goal below 140/90 Unspecified essential hypertension documented in this encounter Care Teams Container Finishing Inspector Relationship Specialty Start Date End Date Danica Almonte DO [address] [place] [address] PCP - General Family Medicine 11/23/16 documented as of this encounter
--- OUTSIDE RECORDS SUMMARY | 2024-04-17 00:01 | External Medical Summary | Summary of Care ---
Author Name Unknown Organization [facility] Address [address] [place] [address] Phone [phone] Care Team Providers Care Engineer Of System Development Name Role Phone Sadia Almonte Primary Care Provider Reason for Visit * Reason Onset Date Comments Medication Administration prolia Medication Administration 03/03/2024 Prolia Encounter Details Date Type Department Care Team (Late st Contact Info) Description 03/03/2024 2:30 PM EDT Nurse Only Rheumatology [facility] [address] [place] [address] Pf, Nurse Rheum [address] [place] [id number] Medication Administration (prolia); Medica... Allergies Active Allergy Reactions Criticality Noted Date Comments Amoxicillin Rash 12/03/2014 Penicillins Rash 12/03/2014 Carbamazepine Rash 12/03/2014 documented as of this encounter (statuses as of 03/03/2024) Medications Medication Sig Dispensed Refills Start Date End Date Status Multiple Vitamin (MULTIVITAMINS) Capsule Take 1 Capsule by mouth in the morning. Active Vitamin D, Cholecalciferol, 1000 units CAPS Take by mouth. Active Metoprolol Succinate ER 25 MG Oral Tablet Extended Release 24 Hour (toPROL XL)Indications:HTN, goal below 140/90 Take 1 Tablet by mouth in the morning. 90 Tablet 3 02/06/2023 Active B-12 1000 MCG Oral Tablet Take by mouth. Active Hospital, Clinic, or Other Facility Administered Medication Ordered Dose Route Frequency Start Date End Date Status Denosumab (Prolia) subcut inj 60 mgIndications:Senile osteoporosis 60 mg SC [id number] 08/29/2023 08/23/2024 Active Denosumab (Prolia) subcut inj 60 mgIndications:Senile osteoporosis 60 mg SC ONCE 03/03/2024 03/03/2024 Ended documented as of this encounter (statuses as of 03/03/2024) Active Problems Problem Noted Date Diagnosed Date Fracture of left wrist with routine healing 01/17 History of open reduction an d internal fixation (ORIF) procedure 02/14/2024 Age-related osteoporosis with current pathologic al fracture 02/14/2024 Hyperlipidemia 08/16/2023 [place] of toe 08/01/2022 Primary osteoarthritis of fi rst carpometacarpal joint of left hand 08/01/2022 HTN, goal below 140/90 01/26/2022 Postprocedural hypoparathyroidism 08/08/2019 Celiac disease 07/25/2019 H/O parathyroidectomy Age-related osteoporosis wit hout current pathological fracture documented as of this encounter (statuses as of 03/03/2024) Resolved Problems Problem Noted Date Diagnosed Date Resolved Date Trigeminal neuralgia 05/06/2018 020 Colon polyp 12/03/2014 09/04/2019 Callous ulcer 12/03/2014 05/06/2018 [place] 12/03/2014 09/04/2019 Bunion of left foot 12/03/2014 12/12/19 19 documented as of this encounter (statuses as of 03/03/2024) Immunizations Name Administration Dates Next Due COVID-19 [...] on file documented as of this encounter Patient Instructions * Patient Instructions* Claudia Frye LPN - 03/03/2024 2:12 PM EDT MEDICATION GUIDE Prolia (NM-ron-a) (denosumab) Injection Read the Medication Guide that comes with Prolia before you start taking it and each time you get arefill. There may be new information. This Medication Guide does not take the place of talking withyour doctor about your medical condition or treatment. Talk to your doctor if you have any questions about Prolia. What is the most important information I should know about Prolia? Prolia can cause serious side effects includin. Low calcium levels in your blood (hypocalcemia). Prolia may lower the calcium levels in your blood. If you have low blood calcium before you start receiving Prolia, it may get worse during treatment. Your low blood calcium must be treated before you receive Prolia. Most people with low blood calcium levels do not have symptoms, but some people may have symptoms. Call your doctor right away if you have symptoms of low blood calcium such as: Spasms, twitches, or cramps in your muscles Numbness or tingling in your fingers, toes, or around your mouth Your doctor may prescribe calcium and vitamin D to help prevent low calcium levels in your blood while you take Prolia. Take calcium and vitamin D as your doctor tells you to. 2. Serious infections. Serious infections in your skin, lower stomach area (abdomen), bladder, or ear may happen if you take Prolia. Inflammation of the inner lining of the heart (endocarditis) due to an infection also mayhappen more often in people who take Prolia. You may need to go to the hospital for treatment if you develop an infection. Prolia is a medicine that may affect your immune system. People who have weakened immune system or take medicines that affect the immune system may have an increased risk for developing serious infections. Call your doctor right away if you have any of the following symptoms of infection: Fever or chills Skin that looks red or swollen and is hot or tender to touch Severe abdominal pain Frequent or urgent need to urinate or burning feeling when you urinate 3. Skin problems. Skin problems such as inflammation of your skin (dermatitis), rash, and eczema may happen if you take Prolia. Call your doctor if you have any of the following symptoms of skin problems that do not go away or get worse: Redness Itching Small bumps or patches (rash) Your skin is dry or feels like leather Blisters that ooze or become crusty Skin peeling 4. Severe jaw bone problems (osteonecrosis). Severe jaw bone problems may happen when you take Prolia. Your doctor should examine your mouth before you start Prolia. Your doctor may tell you to see your dentist before you start Prolia. It is important for you to practice good mouth care during treatment with Prolia. Call your doctor right away if you have any of these side effects. What is Prolia? Prolia is a prescription medicine used to treat osteoporosis (thinning and weakening of bone) in women after menopause (change of life) who Have an increased risk for fractures (broken bones). Cannot use another osteoporosis medicine or other osteoporosis medicines did not work well. Who should not receive Prolia? Do not take Prolia if you have been told by your doctor that your blood calcium level is too low. What should I tell my doctor before receiving Prolia? Before taking Prolia, tell your doctor if you: Have low blood calcium. Cannot take daily calcium and vitamin D. Had parathyroid or thyroid surgery (glands located in your neck). Have been told you have trouble absorbing minerals in your stomach or intestines (malabsorptionsyndrome). Have kidney problems or are on kidney dialysis. Plan to have dental surgery or teeth removed. Are or plan to become . Prolia may harm your unborn baby. Tell your doctor right away if you become while taking Prolia. Surveillance Program: Prolia is not intended for use in women. If you become while taking Prolia, talk to your doctor about enrolling with [employer]illance[employer] or call (p-481-07-RecordSled). The purpose of this program is to collect information about women who have become while taking Prolia. Are breast-feeding or plan to breast-feed. It is not known if Prolia passes into your breast milk. You and your doctor should decide if you will take Prolia or breast-feed. You should not do both. Tell your doctor about all the medicines you take, including prescription and nonprescription drugs, vitamins, and herbal supplements. Know the medicines you take. Keep a list of medicines with you to show to your doctor or pharmacistwhen you get a new medicine. How will I receive Prolia? Prolia is an injection that will be given to you by a healthcare professional. Prolia is injected under your skin (subcutaneous). You will receive Prolia 1 time every 6 months. You should take calcium and vitamin D as your doctor tells you to while you receive Prolia. If you miss a dose of Prolia, you should receive your injection as soon as you can. Take good care of your teeth and gums while you receive Prolia. [place] and floss your teeth regularly. Tell your dentist that you are receiving Prolia before you have dental work. What are the possible side effects of Prolia? Prolia may cause serious side effects. See What is the most important information I should know about Prolia? Long-term effects on bone: It is not known if the use of Prolia over a long period of time may cause slow healing of broken bones or unusual fractures. The most common side effects of Prolia are: Back pain Pain in your arms and legs High cholesterol Muscle pain Bladder infection These are not all the possible side effects of Prolia. For more information, ask your doctor or pharmacist. Call your doctor for medical advice about side effects. You may report side effects to FDA at 3-977-EDH-9594. How should I handle Prolia if I need to pick it up from a pharmacy? Keep Prolia in a refrigerator at 36F to 46F (2C to 8C) in the original carton. Do not freeze Prolia. When you remove Prolia from the refrigerator, Prolia must be kept at room temperature [up to 77F (25C)] in the original carton and must be used within 14 days. Do not keep Prolia at temperatures above 77F (25C). Warm temperatures will affect how Prolia works. Do not shake Prolia. Keep Prolia in the original carton to protect from light. Keep Prolia and all medicines out of reach of children. General information about Prolia Do not give Prolia to other people even if they have the same symptoms that you have. It may harm them. This Medication Guide summarizes the most important information about Prolia. If you would like more information, talk with your doctor. You can ask your doctor or pharmacist for information about Prolia that is written for health professionals. For more information, go to www.[employer] or call [employer] at . What are the ingredients in Prolia? Active ingredient: denosumab Inactive ingredients: sorbitol, acetate, polysorbate 20 (prefilled syringe only), Water for Injection (NURSING HOME), and sodium hydroxide What is osteoporosis? Osteoporosis is a disease in which the bones become thin and weak, increasing the chance of having a broken bone. Osteoporosis usually causes no symptoms until a fracture happens. The most common fractures are in the spine (backbone). They can shorten height, even without causing pain. Over time, the spine can become curved or deformed and the body bent over. Fractures from osteoporosis can also happen in almost any bone in the body, for example: the wrist, rib, or hip. Once you have had a fracture, the chance for more fractures greatly increases. The following risk factors increase your chance of getting fractures from osteoporosis: Past broken bones from osteoporosis Very low bone mineral density (BMD) Frequent falls Limited movement, such as using a wheelchair Medical conditions likely to cause bone loss, such as some kinds of arthritis Taking steroid medicines called glucocorticoids, such as prednisone Other medicines that may cause bone loss, for example: seizure medicines (such as phenytoin), blood thinners (such as heparin), high doses of vitamin A What can I do to treat osteoporosis? There are many steps you can take to treat osteoporosis. Taking Prolia, along with calcium and vitamin D, may be one option for you. [employer] a subsidiary of [employer] [place], [place] [address] This Medication Guide has been approved by the US Food and Drug Administration. 1xxxxxx - v1 Issued: 11/2009 documented in this encounter Progress Notes * Claudia Frye LPN - 03/03/2024 2:12 PM EDT Joanie Joyner presents today for administration of Prolia. She understands the benefits and risks of this treatment. An educational pamphlet was given to the patient. Prolia 60 mg was administered subcutaneously. The patient tolerated the procedure without problems. She will return in 6 months for the next injection and evaluation. Claudia Frye LPN documented in this encounter Nursing Notes * Claudia Frye LPN - 03/03/2024 2:11 PM EDT Chief Complaint Patient presents with Medication Administration prolia documented in this encounter Plan of Treatment Upcoming Encounters Date Type Department Care Team (Late st Contact Info) Description 08/21/2024 7:40 AM EST Office Visit [facility] [place] [address] [place] [address] Sadia Almonte, DO [address] [place] [address] 09/09/2024 2:00 PM EDT Office Visit Rheumatology [facility] [address] [facility] [place], [place] [address] Raul Mckeon CRNP [address] [place], [place] [address] 11/05/2024 8:20 AM EDT Telemedicine Endocrinology [address] [place], [place] [address] Monae Parekh MD [address] [facility] [place] [address] Scheduled Procedures Name Priority [...] D LEVEL ONCE IN A LIFETIME-USE SMARTSET# 71401 Completed 11/29/2023, 08/22/2023, 08/03/2023, Additional history exists [...] as of this encounter Visit Diagnoses Diagnosis Senile osteoporosis- Primary documented in this encounter Administered Medications Inactive Administered Medications - up to 3 most recent administrations Medication Order MAR Action Action Date Dose Rate Site Denosumab (Prolia) subcut inj 60 mg 60 mg, Subcutaneous, ONCE, On 03/03/24 at 1430, For 1 dose Given 03/03/2024 2:14 PM EDT 60 mg Arm Right Upper documented in this encounter Care Teams Engineer Of System Development Relationship Specialty Start Date End Date Sadia Almonte DO [address] [place] [address] PCP - General Family Medicine 11/23/16 documented as of this encounter
[2024-04-17] MEDS: PIPERACILLIN/TAZOBACTAM 4.5 GM/100 ML BAG IV SCH (03:45)
[2024-04-17 07:38] LABS: Basophils # (auto) 0.04 K/uL (0.00-0.20); Basophils % (auto) 0.4 %; Eosinophils # (auto) 0.13 K/uL (0.00-0.50); Eosinophils % (auto) 1.3 %; Hematocrit (blood only) 28.8 % (37.0-47.0); Hemoglobin 9.1 g/dl (12.0-16.0); Immature Granulocytes # (auto) 0.07 K/uL (0.01-0.20); Immature Granulocytes % (auto) 0.7 %; Lymphocytes # (auto) 1.54 K/uL (1.20-3.40); Lymphocytes % (auto) 15.4 %; Mean Corpuscular Hemoglobin 26.7 pg (25.0-34.0); Mean Corpuscular Hgb Conc 31.6 g/dL (32.0-36.0); Mean Corpuscular Volume 84.5 fL (80.0-100.0); Mean Platelet Volume 8.4 fL (9.4-12.4); Monocytes # (auto) 0.81 K/uL (0.11-0.59); Monocytes % (auto) 8.1 %; Neutrophils # (auto) 7.41 K/uL (1.40-6.50); Neutrophils % (auto) 74.1 %; Platelet Count 526 K/uL (130-400); RDW Coefficient of Variation 14.1 % (11.5-14.5); RDW Standard Deviation 43.4 fL (36.4-46.3); Red Blood Count 3.41 M/uL (4.20-5.40)
[2024-04-17 07:47] LABS: Albumin Level 2.9 gm/dl (3.4-5.0); BUN Creatinine Ratio 10.6 (10-20); Bilirubin Direct 0.1 mg/dl (0-0.2); Bilirubin,Total 0.5 mg/dl (0.2-1.0); Calcium 8.6 mg/dl (8.6-10.3); Creatinine Clr Calc Pharmacy 81.5 ml/min; Potassium 4.1 mmol/L (3.5-5.1); Total Protein 6.3 gm/dl (6.0-8.3)
[2024-04-17 08:13] LABS: Vitamin B12 > 1500 pg/ml (180-914)
--- NOTE | 2024-04-17 09:48 | Surgery Progress Note ---
Date of Service April 17, 2024 Assessment & Plan (1) Liver lesion: (2) Acute calculous cholecystitis: Plan: Signs reportedly on outside imaging. Pt's pain is improving with IV antibiotics and her mildly elevated LFTs are trending down, still without leukocytosis. She is afebrile, with resolving tachycardia. No acute surgical intervention as her symptoms are improving with antibiotics and there is potentially a chronic process questionably neoplasm as per an outside MRI report identifying liver lesions. Recommend work up of liver lesions and whether or not endoscopy will be indicated at this time to ID a primary source. GI has been consulted. May consider CT if not already done at the outside facility. IR will not be available until next week. If patient is stable and can tolerate a diet, she may also be discharged to complete outpatient work up. In discussion with the patient, if she is medically stable with continued return to baseline hemodynamics, she would prefer to be discharged for completion of outpatient work up as opposed to waiting here over the weekend for consideration of IR biopsy next week. If she is to be discharged home for outpatient work up, discharge on oral antibiotics to complete a 7 day course. Admission and Anticipated Discharge Date Admission Date: April 16, 2024 Subjective I have seen and examined this patient this am. She states she is feeling better. The RUQ pain she had has significantly reduced and almost non-existent with the initiation of antibiotics. She denies N/V, F/C or abdominal pain this am. Pt denies any other pains. Physical Exam Constitutional: + thin; not ill appearing, not in distre ss and not diaphoretic Respiratory: normal respiratory effort; no respiratory distress, no labored breathing and does not use accessory muscles Gastrointestinal (Abdomen): There is no TTP this am Abdomen is soft, non-distended Results & Data Vital Signs (Past 12 Hours) Vital Signs Temp Pulse Resp BP Pulse Ox O2 Del Method 04/17/24 07:11 37 C 98 H 18 115/72 96 Room Air Laboratory Results AST 44 from 54, ALT 53 from 66, Alk Phos 120 from 139 PG Care Time/CCT Total # of Minutes Spent Total Time Spent with Patient: Total time spent is greater than 50% in coordination of care (as documented) at patient's floor/unit and/or counseling patient: Coding Level of Care Code 62475 SUB INP/OBS CARE 2/35MIN Diagnoses Liver lesion K76.9 Acute calculous cholecystitis K80.00
[2024-04-17 12:10] LABS: Folate (Folic Acid),Ser orPlas 17.71 ng/ml (>5.38)
--- NOTE | 2024-04-17 14:45 | Electrocardiogram Report ---
Test Reason : Blood Pressure : */* mmHG Vent. Rate : 95 BPM Atrial Rate : 95 BPM P-R Int : 166 ms QRS Dur : 74 ms QT Int : 350 ms P-R-T Axes : 63 -24 47 degrees QTcB Int : 439 ms Sinus rhythm with Premature supraventricular complexes Otherwise normal ECG When compared with ECG of 26-Jan-2024 10:22, Premature supraventricular complexes are now Present Vent. rate has increased by 34 bpm Confirmed by Darwin Clark ([id number]) on 04/17/2024 2:45:33 PM Referred By: Vicenta Westbrook Confirmed By: Darwin Clark
[2024-04-17] MEDS: INFLUENZA VACC TS2024-25(65y+)/PF (IIV3) 0.5mL Syr IM ONE (14:56)
[2024-04-17] MEDS ORDERED: ACETAMINOPHEN 325 MG TAB PO PRN (14:58)
--- NOTE | 2024-04-17 15:07 | Hospitalist Progress Note ---
Date of Service April 17, 2024 Assessment & Plan (1) Acute calculous cholecystitis: (2) Mass of multiple sites of liver: (3) HTN (hypertension): Plan Patient with newly diagnosed liver masses with possible calculus cholecystitis. Reviewed surgery consultation and recommendations. No plans for cholecystectomy this hospitalization. Due to the fact the patient is improving on antibiotics recommending treating with antibiotics and pursuing evaluation of liver masses before considering any type of surgical intervention on the gallbladder. Communication with gastroenterology no plans for intervention today. May need outpatient EUS Advance diet Continue IV antibiotics through tomorrow Anticipate coordinating outpatient follow-up with gastroenterology and possibly interventional radiology for outpatient biopsy with potential for discharge tomorrow if patient tolerates diet. CEA and CA19-9 CT of the chest and abdomen pelvis as part of workup for metastatic disease. Admission and Anticipated Discharge Date Admission Date: April 16, 2024 Subjective Patient states she is feeling improved. No abdominal pain. Anxious to visit with gastroenterology Physical Exam Physical Exam: Constitutional: Alert HEENT: Mucous membranes moist. Lungs: Clear to auscultation, decreased, no wheezes rales or rhonchi CV: S1-S2, regular Abdomen: Soft, nontender, nondistended, normal active bowel sounds Extremities: No significant edema Neuro: No focal deficits Psych: Cooperative, normal mood Results & Data Results & Data Vital Signs (Past 12 Hours) Vital Signs Temp Pulse Resp BP Pulse Ox O2 Del Method 04/17/24 07:20 Room Air 04/17/24 07:11 37 C 98 H 18 115/72 96 Room Air Diagnostic Findings Reviewed imaging, laboratory and diagnostic studies. Pertinent findings as below. Electrolytes stable Creatinine 0.47 AST 44, improved ALT 53, improved Alk phos 120, improved Total bilirubin 0.5 CEA 2.9
--- NOTE | 2024-04-17 15:15 | Gastrointestinal Consultation ---
Date of Consultation April 17, 2024 Assessment & Plan (1) Mass of multiple sites of liver: (2) Liver lesion: (3) Abnormal abdominal MRI: Clinically the patient is doing fairly well with minimal abdominal discomfort. She has no leukocytosis and no fever. Liver function tests are minimally elevated. The main concern is possibility of metastatic disease to the liver. In addition she has multiple small pulmonary nodules on a CT scan of the chest performed earlier today. The differential diagnosis of distended gallbladder is possible inflammatory, possibly status post passage of common bile duct stone, possible cholangiocarcinoma however there is no evidence of that on MRI. At present I would recommend to advance diet. Okay to discharge tomorrow for outpatient follow-up. Liver biopsy by interventional radiology will be arranged. History of Present Illness Reason for Consultation: Elevated liver function tests. Abnormal MRI showing possible metastatic disease in the liver and distended gallbladder. Attending Physician: Murtaza Dash, History of Present Illness The patient was evaluated by her family physician because of elevated liver function tests and vague right upper quadrant abdominal discomfort of 1 week duration. An abdominal ultrasound was obtained which showed a distended gallbladder. Subsequently an MRI was obtained as an outpatient and showed multiple liver lesions concerning for metastasis. In addition patient had distended gallbladder with multiple gallstones and pericholecystic fluid raising suspicion for acute cholecystitis. There was a mass effect on the common hepatic duct by the distended gallbladder with mild intrahepatic ductal dilatation. There was no evidence of choledocholithiasis. The patient has vague right upper quadrant abdominal pain, about 3/10 on pain scale. Denies nausea, vomiting, poor appetite. Denies weight loss. Denies chills or fever. The patient has history of celiac disease and she adheres to gluten-free diet. The most recent colonoscopy was done [address] [facility] by patient's data specialist Dr Alarcon. The patient was told that no further colonoscopies are indicated. History of liver biopsy approximately 40 years ago for unclear reason. The patient told me that liver biopsy was done when she presented with symptomatic celiac disease in the distant past. Allergies Allergy/AdvReac Type Severity Reaction Status Date / Time gluten Allergy Severe celiac's Verified 04/16/24 18:00 disease wheat Allergy Severe celiac's Verified 04/16/24 18:00 disease carbamazepine [From Tegretol] Allergy Intermediate rash all Verified 04/16/24 18:00 over body oxcarbazepine Allergy Intermediate rash all Verified 04/16/24 18:00 [From Trileptal] over body Home Medications Medication Instructions Recorded Confirmed Type cholecalciferol (vitamin D3) 25 25 mcg PO QAM 01/28/24 04/16/24 History mcg (1,000 unit) capsule (Vitamin D3) cyanocobalamin (vitamin B-12) 1,000 mcg PO QAM 01/28/24 04/16/24 History 1,000 mcg tablet (Vitamin B-12) vitamin B complex 1 tab PO QAM 01/28/24 04/16/24 History ondansetron 4 mg disintegrating 4 mg PO Q6H PRN nausea and 01/31/24 04/16/24 Rx tablet vomiting #10 tabs Patient History Medical History (Updated 04/17/24 @ 17:17 by Erwin Smallwood MD) Celiac disease Follows gluten free Trigeminal neuralgia History of COVID-19 01/11/24 (home test)- took paxlovid, symptoms all resolved Fracture of distal end of left radius Osteoporosis Osteoarthritis HTN (hypertension) Surgical History History of liver biopsy benign History of esophagogastroduodenoscopy (EGD) History of benign breast biopsy History of colonoscopy History of wisdom tooth extraction History of parathyroidectomy 2013 History of surgery 2006 (for trigeminal neuralgia) Family History Other No family history of adverse response to anesthesia Social History Smoking Status: Former smoker Tobacco Type: Declines Second Hand Exposure: No; Do You Dip or Chew Tobacco: No; Tobacco Cessation Education Requested by Patient: No Hx Alcohol Use: Yes Alcohol type: wine Hx Substance Use: No Preferred Language: Luxembourgish Communication Ability: Effective 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 Respiratory: Denies cough, denies shortness of breath. Cardiovascular: Denies chest pain and palpitations. Gastrointestinal: As per history of present illness. Neurological: Denies speech or visual abnormalities. Denies focal weakness or abnormal sensation. Physical Exam Physical Exam: Constitutional: WD/WN, vitals as above Respiratory: normal respiratory effort, lungs clear to auscultation Cardiovascular: RRR, no murmur, no edema Gastrointestinal (Abdomen): normal bowel sounds, soft, no hepatosplenomegaly. There is mild tenderness in the right upper quadrant without guarding or rebound. Neurological: Oriented x 3, grossly no focal abnormalities, speech is intact. Results & Data Vital Signs (Past 12 Hours) Vital Signs Temp Pulse Resp BP Pulse Ox O2 Del Method 04/17/24 07:20 Room Air 04/17/24 07:11 37 C 98 H 18 115/72 96 Room Air PG Care Time/CCT Total # of Minutes Spent Total Time Spent with Patient: Total time spent is greater than 50% in coordination of care (as documented) at patient's floor/unit and/or counseling patient: Coding Level of Care Code 99060 INT INP/OBS CARE 375MIN Diagnoses Mass of multiple sites of liver R16.0 Liver lesion K76.9 Abnormal abdominal MRI R93.5
--- NOTE | 2024-04-17 16:11 | CT Scan Report ---
CT abd pelvis wo con CLINICAL HISTORY: Liver lesions, metastatic eval TECHNIQUE: Helical axial images of the abdomen and pelvis were obtained. Automated dose lowering tech niques and/or adjustment according to patient size were utilized for this exam. This exam was perfor med without intravenous contrast. CT DOSE: 315.96 mGy.cm COMPARISON: None available at the time of this dictation. FINDINGS: Lower chest: For findings above the diaphragm, please see CT chest performed same day. Liver: Multiple hypodensities are seen in the liver most prominently in segment 6 measuring up to 27 mm. Evaluation of limited by noncontrast technique. Gallbladder and biliary tree: Cholelithiasis is seen with prominent dilation of the gallbladder. No i ntra- or extrahepatic biliary ductal dilation. Pancreas: Unremarkable, no focal lesions. Spleen: Unremarkable. Adrenals: Unremarkable. Kidneys and ureters: Unremarkable. Bladder: Limited evaluation due to underdistention. Reproductive organs: Unremarkable. Bowel: Unremarkable. Lymph nodes Retroperitoneal: Unremarkable. Pelvic: Unremarkable. Mesenteric: Unremarkable. Peritoneum: Normal. Vessels: Atherosclerotic calcifications are seen. Abdominal wall: Unremarkable. Bones: Unremarkable. IMPRESSION: 1. Cholelithiasis is seen with prominence of the gallbladder. Clinical correlation is recommended to exclude acute cholecystitis. 2. Limited evaluation for liver lesions due to noncontrast technique, however multiple hypodensities are seen. ACT 112: Negative or not required by law. Electronically signed by: Venkata Munoz M.D. 04/17/2024 4:09 PM
--- NOTE | 2024-04-17 16:18 | CT Scan Report ---
CT OF THE CHEST WITHOUT IV CONTRAST CLINICAL HISTORY: liver lesions, metastatic eval COMPARISON STUDY: No previous studies for comparison. TECHNIQUE: Axial images of the chest were obtained without IV contrast. Images were reviewed in the axial, sagittal, and coronal planes. IV contrast was not administered for this examination. Automat ed exposure control was utilized for the study. A dose lowering technique was utilized adhering to t he principles of ALARA. FINDINGS: There is mild dilatation of the ascending aorta measuring 3.8 cm. The heart is mildly enla rged. There is no pericardial effusion. There are are mildly enlarged right cardiophrenic angle lymph nodes measure up to 1.5 x 0.9 cm. No pneumothorax or pleural effusion is present. There is no consol idation to suggest pneumonia. There is mild bronchiectasis within the right middle lobe with mild muc us plugging. Innumerable lower lobe predominant pulmonary nodules measure up to 7 mm. Several these n odules may reflect mucous plugging. No cavitary nodules are present. There are no suspicious lesions within the bony thorax. Please note that the abdomen and pelvis CT will be reported separately. IMPRESSION: 1. Innumerable lower lobe predominant pulmonary nodules measuring up to 7 mm. These may be infectious or inflammatory. However, pulmonary metastases are also within the differential. Comparison with andrew or imaging studies, if available is recommended. In the absence of prior studies, a chest CT in one [facility] is recommended. 2. Several mildly enlarged right cardiophrenic angle lymph nodes which are also indeterminate and barbara uld be assessed on follow-up CT. ACT 112: Positive. There are findings on this exam that require communication between the performing entity and the patient following Patient Test Result Information Act ([place] Act 112) guidelines. Electronically signed by: Mukesh Green M.D. 04/17/2024 4:16 PM
[2024-04-17 19:39] VITALS: RESP 16; TEMP 98.2
[2024-04-18 07:15] LABS: Hematocrit (blood only) 29.4 % (37.0-47.0); Hemoglobin 9.2 g/dl (12.0-16.0); Mean Corpuscular Hemoglobin 26.9 pg (25.0-34.0); Mean Corpuscular Hgb Conc 31.3 g/dL (32.0-36.0); Mean Platelet Volume 8.5 fL (9.4-12.4); Platelet Count 486 K/uL (130-400); Red Blood Count 3.42 M/uL (4.20-5.40); White Blood Count 9.64 K/ul (4.8-10.8)
[2024-04-18 07:21] LABS: Albumin Level 2.9 gm/dl (3.4-5.0); BUN Creatinine Ratio 8.3 (10-20); Bilirubin Direct 0.2 mg/dl (0-0.2); Bilirubin,Total 0.6 mg/dl (0.2-1.0); Calcium 8.3 mg/dl (8.6-10.3); Creatinine Clr Calc Pharmacy 79.8 ml/min; Potassium 3.8 mmol/L (3.5-5.1); Total Protein 6.3 gm/dl (6.0-8.3)
[2024-04-18 07:45] VITALS: BP 128/81; PULSE 88; O2SAT 96
--- NOTE | 2024-04-18 08:17 | Surgery Progress Note ---
<Statement entered by Suri Hoover DO - 04/18/24 08:43> I have seen and examined this patient with the surgical PA, I agree with this plan Date of Service April 18, 2024 Assessment & Plan (1) Acute calculous cholecystitis: Plan: Pt here with abdominal pain WBC 9, Hbg 9.2, LFTs stable improving Tb 0.6, AST 52, ALT 57, ALkp 126 Workup shows gallstones, cannot rule out cholecystitis, however also has numerable liver lesions and pulmonary lesions of unclear etiology cannot rule out metastatic sites Patient's pain is much improved s/p the initiation of antibiotics, would tx for presumed acute cholecystitis with a course of po abx x 7 days In the meantime recommend workup with GI and IR as an outpatient for evaluation of these lesions and biopsy of the liver No plans for cholecystectomy at this time while undergoing workup for possible malignancy We will sign off, please call back with any questions/concerns Admission and Anticipated Discharge Date Admission Date: April 16, 2024 Subjective Patient feeling okay. She does endorse some mild R mid abdominal pain to palpation, but it is not severe and does not hurt at rest. Otherwise no n/v, tolerating diet. Physical Exam Physical Exam: awake/alert, no distress Gastrointestinal (Abdomen): Inspection/Auscultation: abdomen not distended Percussion/Palpation: + abdomen tender (very mild discomfort to R mid abdomen) and abdomen soft; no guarding Results & Data Vital Signs (Past 12 Hours) Vital Signs Temp Pulse BP Pulse Ox O2 Del Method 04/18/24 07:44 98.2 F 88 128/81 96 Room Air PG Care Time/CCT Total # of Minutes Spent Total Time Spent with Patient: Total time spent is greater than 50% in coordination of care (as documented) at patient's floor/unit and/or counseling patient: Coding Level of Care Code 18313 SUB INP/OBS CARE 07/12MIN Diagnoses Acute calculous cholecystitis K80.00
--- NOTE | 2024-04-18 10:30 | Discharge Summary ---
Discharge Summary Date of Service April 18, 2024 Principal Dx & Hospital Course #1 = Principal Diagnosis (1) Acute calculous cholecystitis: (2) Mass of multiple sites of liver: Suspect may be metastatic disease from primary site (3) HTN (hypertension): (4) Lymphadenopathy, mediastinal: (5) Lung nodules: Plan Patient presented to the emergency room at the instruction of her outpatient provider after she had had a MRCP that indicated that the gallbladder was inflamed and that she had several liver masses. The patient was admitted to the hospital. She was started on broad-spectrum antibiotics for acute cholecystitis. Surgical consultation was obtained. They evaluated the patient and noted that she had significantly responded to the antibiotics. They were highly concerned that the liver masses may represent metastatic disease and were hesitant to move forward with any type of gallbladder surgery without knowing the pathology of the liver masses. Since she was responding well to antibi otics, surgery recommended completing a course of oral antibiotics for her presumed cholecystitis. Patient did have elevated LFTs. However this is not fully consistent with obstructive gallbladder or acute cholecystitis in the sense that her bilirubin was not elevated. It did improve initially with treatment of antibiotics and seems to have stabilized at the current levels. Suspect this is a reflection more of the liver masses than any type of acute issue with the gallbladder. GI consultation was obtained. They evaluated the patient. And they did not recommend any in-hospital endoscopy. They did strongly recommend outpatient IR guided biopsy of the liver masses as well as potentially following up with them for outpatient EUS. The patient's diet was advanced. She tolerated this well. She had no abdominal pain. Other laboratory studies were stable. Vital signs were stable. Case management was involved in her care and will help coordinate outpatient IR appointment for liver biopsy. She also follow-up with surgery and can gastroenterology as an outpatient and continued care with her primary care provider. Patient is aware that she will need close follow-up and that the next important step of her care is getting a formal diagnosis of these liver masses. While she was here in the hospital she did have CEA and CA 19 9 testing. CEA is only mildly increased. CT scan of the chest abdomen pelvis was also performed. There were nodules noted in the right lower lobe as well as some perihilar lymphadenopathy. Could not rule out metastatic disease. There is no evidence of other masses in the abdomen other than what is in the liver. Notes For Next Care Provider Patient will need biopsy of liver lesions for definitive diagnosis and ongoing care and evaluation. Follow-up with surgery Follow-up gastroenterology Pending on pathology patient may need oncological referral. Medication Changes From Visit Augmentin for cholecystitis Admission HPI Per Admitting Provider 79-year-old female with history of hypertension, dyslipidemia, hyperparathyroidism status post parathyroidectomy, celiac disease, presenting with abnormal MRI of the abdomen. Patient report at least 1 month history of abdominal bloating, generalized weakness, and intermittent fever/chills. She was seen by her PCP 2 days ago, found to have elevated LFTs and anemia, and was sent for an MRI of the abdomen and pelvis. She was called in today as the MRI acute calculus cholecystitis, and multiple liver lesions. At the ER, patient received with stable vital signs, afebrile. LFTs showing mild elevation of AST/ALT/alk phos, but normal bilirubin. She was given IV cefoxitin. On exam, patient seen resting in bed, comfortable, in good spirits, very pleasant. Reports appetite is fair, has some weight loss, but no melena or hematochezia. Admission Exam Per Admitting Provider See H&P Discharge Exam Constitutional: Alert, nontoxic, no acute distress HEENT: Mucous membranes moist. Lungs: Clear to auscultation, decreased, no wheezes rales or rhonchi CV: S1-S2, regular Abdomen: Soft, nontender, nondistended, no masses appreciated Extremities: No significant edema Neuro: No focal deficits Psych: Cooperative, normal mood Updated Medication List Medication Instructions Recorded Confirmed Type cholecalciferol (vitamin D3) 25 25 mcg PO QAM 01/28/24 04/16/24 History mcg (1,000 unit) capsule (Vitamin D3) cyanocobalamin (vitamin B-12) 1,000 mcg PO QAM 01/28/24 04/16/24 History 1,000 mcg tablet (Vitamin B-12) vitamin B complex 1 tab PO QAM 01/28/24 04/16/24 History ondansetron 4 mg disintegrating 4 mg PO Q6H PRN nausea and 01/31/24 04/16/24 Rx tablet vomiting #10 tabs L.acidop,casei,lactis,rham-B.lact,perla 1 cap PO DAILY #30 caps 04/18/24 Rx 625 mg (10 billion cell) capsule (Advanced Probiotic) amoxicillin 875 mg-potassium 1 tab PO BID 7 days #14 tabs 04/18/24 Rx clavulanate 125 mg tablet Hospital Stay Data Consultations 04/16/24 18:27 ED Decision to Admit Stat 04/16/24 18:32 Consult Gastroenterology Routine Consult General Surgery Routine Diagnostic Imagining Performed 04/17/24 15:08 CT Abd and Pelvis [CT abd pelvis wo con] Routine CT chest diagnostic wo con Routine Reviewed imaging, laboratory and diagnostic studies. Pertinent findings as below. CT of the abdomen and pelvis showed liver lesions as previously none, no other masses. I refer you to the full report for details CT of the chest showed innumerable pulmonary nodules in the lower lobe, cannot rule out metastatic disease, I refer to the full report for details Total bilirubin 0.6 AST 52 ALT 57 Alk phos 126 Electrolytes within normal range Creatinine 0.48 Platelets 486, improved Hemoglobin 9.2 WBCs 9.6 CEA 2.9 CA 199 pending Pending Results Patient Have Any Pending Studies at Discharge: No Discharge Instructions Given to Patient (Per Discharging Provider) Is important that you coordinate a interventional radiology biopsy of your liver Follow-up with gastroenterology as an outpatient Follow-up with surgery Total Time Total Time Spent Total Time Spent (In Minutes): 40
== END 2024-04-18 13:03 | disposition home or self-care (01) | DRG 445 ==
LOC: ED 17:29 → 3W 18:32 → SUATTDRO 18:32 → 3W 20:12